=== PATIENT | female | born 1985 | race Caucasian/White ===

== ENCOUNTER 2016-09-09 13:17 | Emergency (ER) | payer OTHER ==
[2016-09-09 13:37] VITALS: BP 114/66
[2016-09-09] MEDS ORDERED: Ibuprofen TAB* 400 MG PO ONE (14:29)
--- NOTE | 2016-09-09 15:07 | RAD ---
INDICATION: Pelvic injury. TECHNIQUE: 2 AP views of the pelvis were obtained. FINDINGS: The bones are in normal alignment. No fracture is seen. Joint spaces appear maintained. IMPRESSION: NO EVIDENCE FOR FRACTURE, IF THE PATIENT'S SYMPTOMS PERSIST RECOMMEND FOLLOW-UP IMAGING.
--- NOTE | 2016-09-09 15:13 | RAD ---
INDICATION: Trauma, back pain. COMPARISON: Comparison is made with a prior x-ray study of the lumbar spine from August 09, [address] of the lumbar spine from February 20, 2010. TECHNIQUE: 5 views of the lumbar spine were obtained including lateral, oblique, AP and a coned-down lateral view of the lumbar sacral junction. FINDINGS: There is posterior displacement of the distal 3 coccygeal segments which is likely a chronic finding although an acute process cannot be excluded. Recommend clinical correlation. No fracture is seen. Disc spaces appear maintained. IMPRESSION: THERE IS MILD POSTERIOR SUBLUXATION OF THE DISTAL SEGMENTS OF THE COCCYGEAL SPINE. THIS IS A NONSPECIFIC ALTHOUGH LIKELY CHRONIC FINDING. RECOMMEND CLINICAL CORRELATION FOR POINT TENDERNESS.
--- NOTE | 2016-09-09 15:59 | UC ---
Nigel Saba Alok, scribed for Ernestina Land MD on 09/09/16 at 1410 . Minor Trauma HPI - HPI Summary HPI Summary: 31 y/o female presents to the and c/o pain in her right hip, tailbone, and lower back. Pt reportedly fell 2 days ago while carrying her 4 y/o down stairs. Pt's child was reportedly unharmed but pt noticed pain the following day. Pt has been taking ibuprofen for pain but nothing WIRE THREADER. Pt notes bruising on right buttocks and hip. Pt adds numbness where bruised and right anterior groin pain. Pt denies chance of and is on bcp. - History of Current Complaint Chief Complaint: UCTrauma Stated Complaint: HIP INJURY Hx Obtained From: Patient Hx Last Menstrual Period: 08/14/16 ?: No Onset/Duration: Gradual Onset, Lasting Days, Still Present Onset Of Pain: Post Accident Severity Initially: Moderate Severity Currently: Moderate Pain Intensity: 0 - worse with sitting Pain Scale Used: 0-10 Numeric Mechanism Of Injury: Fall From A Standing Position - Down a few stairs Aggravating Factor(s): Nothing Alleviating Factor(s): OTC Meds - Ibuprofen Associated Signs And Symptoms: Positive: Ecchymosis - Right buttocks and hip - Allergies/Home Medications Allergies/Adverse Reactions: Allergies Allergy/AdvReac Type Severity Reaction Status Date / Time No Known Allergies Allergy Verified 09/09/16 13:37 PMH/Surg Hx/FS Hx/Imm Hx Endocrine History Of: Denies: Diabetes, Thyroid Disease Cardiovascular History Of: Denies: Cardiac Disorders, Hypertension Respiratory History Of: Reports: Asthma - A CHILD Denies: COPD GI/ History Of: Denies: Ulcer - Surgical History Surgical History: None - Family History Known Family History: Positive: Cardiac Disease, Hypertension, Respiratory Disease - Social History Lives: With Family Alcohol Use: Occasionally Substance Use Type: None Smoking Status (MU): Light Every Day Tobacco Smoker Type: Cigarettes Amount Used/How Often: 1/2 PPD Length of Time of Smoking/Using Tobacco: 15 years Have You Smoked in the Last Year: Yes Review of Systems Constitutional: Negative Skin: Bruising - Right buttocks and hip Musculoskeletal: Arthralgia, Myalgia, Other: - Hip, tailbone, lower back, right anterior groin pain Neurological: Numbness - Right Buttocks and Hip All Other Systems Reviewed And Are Negative: Yes Physical Exam Triage Information Reviewed: Yes Appearance: Well-Appearing, Well-Nourished, Pain Distress Vital Signs: Initial Vital Signs Temp 98.6 F 09/09/16 13:33 Pulse 70 09/09/16 13:33 Resp 16 09/09/16 13:33 BP 114/66 09/09/16 13:33 Pulse Ox 100 09/09/16 13:33 Vital Signs Reviewed: Yes Eyes: Positive: Conjunctiva Clear ENT: Positive: Normal ENT inspection Neck: Positive: Supple, Nontender Respiratory: Positive: Lungs clear, Normal breath sounds, No respiratory distress Cardiovascular: Positive: RRR, No Murmur, Pulses Normal, Brisk Capillary Refill Abdomen Description: Positive: Nontender, Soft Bowel Sounds: Positive: Present Musculoskeletal: Positive: Strength Intact, ROM Intact, Other: - Right anterior groin tenderness. L4 L5 spinal tenderness and point tenderness at coccyx Neurological: Positive: Alert, Muscle Tone Normal, Other: - Gait normal; patellar reflexes 2+ symmetric; able to walk on heels and toes Psychological Exam: Normal Skin: Positive: Other - Right Buttocks lower ecchymosis 16 cm by 9 cm and upper eccymosis 8 cm by 9 cm. Ecchymosis dark purple in color. Re-Evaluation - Re-Evaluation First Eval Change: Improved - 15:30 after ibuprofen, still with severe pain with sitting Minor Trauma Course/Dx - Course Course Of Treatment: Pt has point tenderness at the site of coccygeal subluxation, so xray findings may be acute. Discussed with Dr. Valencia who recommends that if pt's pain persists, she could have advanced imaging. Discussed with pt. - Differential Dx/Diagnosis Differential Diagnosis/HQI/PQRI: Contusion(s), Fracture, Sprain, Strain Provider Diagnoses: Acute coccygeal injury. acute low back pain after a fall - Physician Notifications Time Discussed With Above Provider: 15:30 - Dr. Valencia, radiologist Instructed by Provider To: Other - Dr. Valencia feels the findings on xray are chronic because he did reconstructions on a prior CT and it appeared the coccyx findings were present. Discharge - Discharge Plan Condition: Stable Disposition: HOME Prescriptions: HYDROcodone/ACETAMIN 5-325 MG* [[place] 5-325 TAB*] 1 tab PO Q4H PRN #18 tab MDD 6 PRN Reason: Pain Ibuprofen TAB* [Motrin TAB* 800 MG] 800 mg PO Q6H #40 tab Patient Education Materials: Coccyx Injury (ED) Referrals: [facility] [Outside] (Call this number to get established with a primary care provider as soon as possible. ) Additional Instructions: If no improvement you can follow up with a provider and get further imaging. Return to urgent care if any new or worsening symptoms. The documentation as recorded by the Nigel dalton Alok accurately reflects the service I personally performed and the decisions made by , Ernestina Land MD.
== END 2016-09-09 15:55 | disposition home or self-care (01) ==
LOC: UCEAST 13:17
DX: S39.92XA Unspecified injury of lower back, initial encounter (principal); S30.0XXA Contusion of lower back and pelvis, initial encounter; S70.01XA Contusion of right hip, initial encounter; W10.9XXA Fall (on) (from) unspecified stairs and steps, initial encounter; Y93.89 Activity, other specified; Y92.9 Unspecified place or not applicable; M54.5 Low back pain; F17.210 Nicotine dependence, cigarettes, uncomplicated
CPT/HCPCS: 72110; 72170; 99212; A9270-GY; G0463

== ENCOUNTER 2016-10-09 13:16 | Emergency (ER) | payer OTHER ==
[2016-10-09 13:57] VITALS: BP 116/74
--- NOTE | 2016-10-09 14:36 | UC ---
Lidia Saba Salem, scribed for Nuris Jacobo MD on 10/09/16 at 1413 . Respiratory Complaint HPI - HPI Summary HPI Summary: Patient is a 31 y/o female who presents to the with chest tightness, worse in the morning, for a few days. She reports wheezing, a cough productive for green/yellow sputum. Pt denies fever, chills, or ear pain. She state that sinuses began to feel sore and full over last 2 days. Pt reports cough with yellow to green sputum. No SOB. No chest pain. no change appetite. No nausea, vomiting, dysuria. Pt does smoke 1/2 ppd. Pt with h/o bronchitis. States this feels similar Patients medication reviewed this visit. - History of Current Complaint Chief Complaint: UCRespiratory Stated Complaint: COUGH CONGESTION Time Seen by Provider: 10/09/16 13:51 Hx Obtained From: Patient Hx Last Menstrual Period: 1 WEEK AGO ?: No Onset/Duration: Gradual Onset, Still Present Timing: Constant Severity Initially: Mild Severity Currently: Moderate Pain Intensity: 3 Pain Scale Used: 0-10 Numeric Character: Sputum Description: - green/yellow Aggravating Factors: Nothing Alleviating Factors: Nothing Associated Signs And Symptoms: Positive: Negative, Wheezing, Nasal Congestion, Sinus Discomfort. Negative: Dyspnea, Fever, Chills - Allergies/Home Medications Allergies/Adverse Reactions: Allergies Allergy/AdvReac Type Severity Reaction Status Date / Time No Known Allergies Allergy Verified 09/24/16 15:44 PMH/Surg Hx/FS Hx/Imm Hx Previously Healthy: Yes Endocrine History Of: Denies: Diabetes, Thyroid Disease Cardiovascular History Of: Denies: Cardiac Disorders, Hypertension, Pacemaker/ICD Respiratory History Of: Reports: Asthma - A CHILD Denies: COPD GI/ History Of: Denies: Ulcer, Renal Disease Neurological History Of: Denies: TIA, Dementia - Surgical History Surgical History: None - Family History Known Family History: Positive: Cardiac Disease, Hypertension, Diabetes - Social History Alcohol Use: Occasionally Substance Use Type: None Smoking Status (MU): Light Every Day Tobacco Smoker Type: Cigarettes Amount Used/How Often: 1/2 PPD Length of Time of Smoking/Using Tobacco: 15 years Have You Smoked in the Last Year: Yes Review of Systems Constitutional: Fever, Fatigue Skin: Negative Eyes: Negative ENT: Negative, Nasal Discharge, Other - Pain in sinuses. Respiratory: Cough, Other - Wheezing. Chest tightness. Cardiovascular: Negative Gastrointestinal: Negative Genitourinary: Negative Motor: Negative Neurovascular: Negative Musculoskeletal: Negative Neurological: Negative Psychological: Negative All Other Systems Reviewed And Are Negative: Yes Physical Exam Triage Information Reviewed: Yes Appearance: Well-Appearing, No Pain Distress, Well-Nourished Vital Signs: Initial Vital Signs Temp 98.7 F 10/09/16 13:53 Pulse 52 10/09/16 13:53 Resp 16 10/09/16 13:53 BP 116/74 10/09/16 13:53 Pulse Ox 98 10/09/16 13:53 Vital Signs Reviewed: Yes Eye Exam: Normal Eyes: Positive: Conjunctiva Clear. Negative: Discharge ENT Exam: Normal ENT: Positive: Hearing grossly normal, Nasal congestion, TMs normal - TM x 2 clear turbinates inflammed and boggy + PND mild erythema, no exudate, uvula midline, Other: - + TTP max sinuses L>R. Negative: Pharyngeal erythema, Tonsillar swelling, Tonsillar exudate Dental Exam: Normal Neck exam: Normal Neck: Positive: Supple, Nontender, No Lymphadenopathy Respiratory Exam: Normal Respiratory: Positive: Chest non-tender. Negative: Stridor, Wheezing - few scattered wheeze R>L Pt with coarse cough noted No increased WOB, retractions Cardiovascular Exam: Normal Cardiovascular: Positive: RRR, No Murmur, Pulses Normal Abdominal Exam: Normal Abdomen Description: Positive: Nontender, No Organomegaly, Soft Bowel Sounds: Positive: Present Musculoskeletal Exam: Normal Musculoskeletal: Positive: Strength Intact, ROM Intact Neurological Exam: Normal Neurological: Positive: Alert, Muscle Tone Normal, Fatigued Psychological Exam: Normal Skin Exam: Normal UC Diagnostic Evaluation - Laboratory O2 Sat by Pulse Oximetry: 98 Respiratory Course/Dx - Course Course Of Treatment: Pt with progressive coarse cough, productive with fatigue and 2 days sinus pressure, PND. Pt with tobacco use - Differential Dx/Diagnosis Provider Diagnoses: bronchitis, sinusitis Discharge - Discharge Plan Condition: Stable Disposition: HOME Prescriptions: Albuterol HFA INHALER* [Ventolin HFA Inhaler*] 1 - 2 puff INH Q4H PRN #1 mdi PRN Reason: Cough Azithromycin TAB* [Zithromax TAB (Z-CEASAR) 250 mg #6 tabs] 2 tab PO .TODAY, THEN 1 DAILY #1 ceasar Patient Education Materials: Acute Bronchitis (ED), Sinusitis (ED) Referrals: Marvin Collazo MD [Primary Care Provider] - Additional Instructions: - Alternate ibuprofen (Advil, motrin) 600mg and tylenol every 3 hours for pain or fever. - Stay well hydrated. Drink plenty of non-alcoholic, non-caffinated beverages - take antibiotics 2 times a day as prescribed - USe inhaler - 2 puffs every 4 hours today, then eveyr 4 hours as needed -Work to decrease cigarette smoke -After you have been on antibiotics for 2 days - change your toothbrush and your pillowcase. These infections are spread by secrtions - do NOT share eating or drinking utensils - clean items you share with other people such as iphone, computer mouse, TV remote, etc Contact your doctor to schedule a follow-up appointment. Contact your doctor or return with questions or concerns The documentation as recorded by the Lidia dalton Salem accurately reflects the service I personally performed and the decisions made by , Nuris Jacobo MD.
== END 2016-10-09 15:15 | disposition home or self-care (01) ==
LOC: UCEAST 13:16
DX: J40 Bronchitis, not specified as acute or chronic (principal); J32.9 Chronic sinusitis, unspecified; F17.210 Nicotine dependence, cigarettes, uncomplicated
CPT/HCPCS: 99212; G0463

== ENCOUNTER 2017-06-26 12:23 | Emergency (ER) | payer OTHER ==
--- OUTSIDE RECORDS SUMMARY | 2017-06-26 12:56 | XMS REPORT ---
:1985 External Reference #:[id number] Author Organization [facility] Address [address] [place] [address] Phone [phone] Care Team Providers Name Role Phone [facility] Collazo M[facility] 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 Payers Type Date Identification Numbers Payment Provider Subscriber Commercial Policy Number: [id number] [facility] Hyun Fay PayID: [id number] [address] [place] [address] Medigap Part B Policy Number: [id number] Medicaid/[employer] Hyun Fay PayID: [id number] [address] [place] [address] Problems Description No Information Family History Date Family Member(s) Problem(s) Comments General Hypertension General Heart Disease General Diabetes Father Heart Disease Father 59 Mother Diabetes Mother 59 Mother Heart Disease Children 2 First Son 10 First Son No Current Problems Second Son 3 Second Son No Current Problems Siblings 1 First Sister Enlarged Liver First Sister 35 First Sister Hypertension Social History Type Date Description Comments Lives With Children Pets None Work Status Unemployed ETOH Use Occasionally consumes alcohol Smoking Light tobacco smoker (10 or fewer cigarettes/day) Recreational Drug Use Denies Drug Use Daily Caffeine Occasionally Allergies, Adverse Reactions, Alerts Date Description Reaction Status Severity Comments 09/23/2016 NKDA active Medications Medication Date Status Form Strength Qnty SIG Indications Ordering Provider Ciprofloxacin 06/08/ Hx Tablets 500mg 20tabs tab one by J45.901 Zay, HCL 2017 - mouth Marvin Coleman, 06/18/ twice a M.D. 2017 day Cheratussin ac 06/08/ Hx Syrup 100-10mg/5 150uni teaspoon 1 R05 Zay, 2017 - ML ts every 4 Ahmad M., 06/18/ hours as M.D. 2017 needed Prednisone 06/08/ Active Tablets 20mg 18tabs 3 tab by J45.901 Zay 2016 mouth Ahmad M., daily 3 M.D. days, then 2 tab daily x 3 d , then 1 tab daily 3d Tramadol HCL 04/13/ Active Tablets 50mg 45tabs 1 by mouth S32.2xxD Zay 2016 three Ahmad M., times a M.D. day Clonazepam 03/09/ Active Tablets 0.5mg 30tabs tab one by F41.9 Zay 2016 mouth at Ahmad M., at bedtime M.D. Fluocinonide 10/22/ Active Cream 0.05% 30gm use as L20.9 Zay 2017 directed Agustinmejae Coleman M.D. Hydrocodone-Acet 09/23/ Active Tablets 10-325mg 90tabs 1-2 tab by M51.37 Zay aminophen 2016 mouth Ahmad M., every 4 M.D. hours as needed Ibuprofen / Active Tablets 800mg Take One M51.37 Unknown 0000 Tablet By Mouth Every 6 Hours as Needed For Pain M25.551 S32.2xxD Amethia Active Tablets 0.15-0.03&0.01mg 91tabs take one Z30.41 Zay, tablet Ahmad by mouth M., every M.D. day Medrol 11/25/2016 Hx TBPK 4mg 21units use as M51.37 Zay, - directed Ahmad 12/01/2016 on M., package M.D. Prednison 09/23/2016 Hx Tablets 20mg 18tabs 3 tab by M54.17 Zay e - mouth Ahmad 10/01/2016 daily 3 M., days, M.D. then 2 tab daily x 3 d , then 1 tab daily 3d Hydrocodo Hx Tablets 5-325mg Take One M25.551 Unknown ne-Acetam - Tablet inophen 09/23/2016 By Mouth Every 4 Hours as Needed For Pain Maximum Nataly M51.37 Z00.01 Vital Signs Date Vital Result Comment 06/08/2017 BP Systolic 122 mmHg BP Diastolic 62 mmHg Height 66 inches 5'6" Weight 173.00 lb BMI (Body Mass Index) 27.9 kg/m2 Heart Rate 54 /min Respiratory Rate 18 /min 05/11/2017 BP Systolic 110 mmHg BP Diastolic 62 mmHg Height 66 inches 5'6" Weight 181.00 lb BMI (Body Mass Index) 29.2 kg/m2 Heart Rate 62 /min Respiratory Rate 18 /min 04/13/2017 BP Systolic 108 mmHg BP Diastolic 68 mmHg Height 66 inches 5'6" Weight 184.00 lb BMI (Body Mass Index) 29.7 kg/m2 Heart Rate 66 /min Respiratory Rate 16 /min 03/09/2017 BP Systolic 110 mmHg BP Diastolic 70 mmHg Height 66 inches 5'6" Weight 184.00 lb BMI (Body Mass Index) 29.7 kg/m2 Heart Rate 68 /min Respiratory Rate 16 /min 02/14/2017 BP Systolic 110 mmHg BP Diastolic 70 mmHg Height 66 inches 5'6" Weight 188.00 lb BMI (Body Mass Index) 30.3 kg/m2 Heart Rate 88 /min Respiratory Rate 18 /min 01/20/2017 BP Systolic 118 mmHg BP Diastolic 66 mmHg Height 66 inches 5'6" Weight 191.00 lb BMI (Body Mass Index) 30.8 kg/m2 Heart Rate 78 /min Respiratory Rate 16 /min 12/22/2016 BP Systolic 122 mmHg BP Diastolic 62 mmHg Height 66 inches 5'6" Weight 202.00 lb BMI (Body Mass Index) 32.6 kg/m2 Heart Rate 76 /min Respiratory Rate 16 /min 11/25/2016 BP Systolic 134 mmHg BP Diastolic 78 mmHg Height 66 inches 5'6" Weight 206.00 lb BMI (Body Mass Index) 33.2 kg/m2 Heart Rate 78 /min Respiratory Rate 16 /min 10/22/2016 BP Systolic 108 mmHg BP Diastolic 64 mmHg Height 66 inches 5'6" Weight 206.00 lb BMI (Body Mass Index) 33.2 kg/m2 Heart Rate 81 /min Respiratory Rate 16 /min 09/23/2016 BP Systolic 110 mmHg BP Diastolic 68 mmHg Height 66 inches 5'6" Weight 206.00 lb BMI (Body Mass Index) 33.2 kg/m2 Heart Rate 63 /min Respiratory Rate 18 /min Results Test Date Test Result H/L Range Note CBC Auto Diff 12/22/2016 White Blood Count 11.4 10^3/uL High 3.5-10.8 Red Blood Count 4.36 10^6/uL 4.0-5.4 Hemoglobin 13.1 g/dL 12.0-16.0 Hematocrit 41 % 35-47 Mean Corpuscular Volume 94 fL 80-97 Mean Corpuscular Hemoglobin 30 pg 27-31 Mean Corpuscular HGB Conc 32 g/dL 31-36 Red Cell Distribution Width 13 % 10.5-15 Platelet Count 313 10^3/uL 150-450 Mean Platelet Volume 10 um3 7.4-10.4 Abs Neutrophils 7.0 10^3/uL 1.5-7.7 Abs Lymphocytes 3.3 10^3/uL 1.0-4.8 Abs Monocytes 0.6 10^3/uL 0-0.8 Abs Eosinophils 0.2 10^3/uL 0-0.6 Abs Basophils 0.2 10^3/uL 0-0.2 Abs Nucleated RBC 0.01 10^3/uL Granulocyte % 61.3 % 38-83 Lymphocyte % 29.4 % 25-47 Monocyte % 5.3 % 1-9 Eosinophil % 2.1 % 0-6 Basophil % 1.9 % 0-2 Nucleated Red Blood Cells % 0.1 Comp Metabolic Panel 12/22/2016 Sodium 137 mmol/L 133-145 Potassium 4.2 mmol/L 3.5-5.0 Chloride 109 mmol/L 101-111 Co2 Carbon Dioxide 22 mmol/L 22-32 Anion Gap 6 mmol/L 2-11 Glucose 90 mg/dL 70-100 Blood Urea Nitrogen 12 mg/dL 6-24 Creatinine 0.70 mg/dL 0.51-0.95 BUN/Creatinine Ratio 17.1 8-20 Calcium 9.0 mg/dL 8.6-10.3 Total Protein 6.2 g/dL Low 6.4-8.9 Albumin 3.8 g/dL 3.2-5.2 Globulin 2.4 g/dL 2-4 Albumin/Globulin Ratio 1.6 1-3 Total Bilirubin 0.60 mg/dL 0.2-1.0 Alkaline Phosphatase 39 U/L 34-104 Alt 11 U/L 7-52 Ast 11 U/L Low 13-39 Egfr Non- 98.3 >60 Egfr 126.4 >60 1 Laboratory test finding 12/22/2016 TSH (Thyroid Stim Horm) 1.46 mcIU/mL 0.34-5.60 2 Hemoglobin A1c (Glyco HGB) 5.1 % Less than 6.0 3 Lipid Profile (Trig/Chol/HDL) 12/22/2016 Triglycerides 98 mg/dL 4 Cholesterol 126 mg/dL 5 HDL Cholesterol 40.5 mg/dL 6 LDL Cholesterol 66 mg/dL 7 1 Because ethnic data is not always readily available, this report includes an eGFR for both -Americans and non- Americans. The National Kidney Disease Education Program (NKDEP) does not endorse the use of the MDRD equation for patients that are not between the ages of 18 and 70, are , have extremes of body size, muscle mass, or nutritional status, or are non- or non-. According to the National Kidney Foundation, irrespective of diagnosis, the stage of the disease is based on the level of kidney function: Stage Description GFR(mL/min/1.73 m(2)) 1 Kidney damage with normal or decreased GFR 90 2 Kidney damage with mild decrease in GFR 60-89 3 Moderate decrease in GFR 30-59 4 Severe decrease in GFR 15-29 5 Kidney failure <15 (or dialysis) 2 [id number] 3 Therapeutic target for the treatment of diabetes Mellitus patients is <7% HBA1C, and in selective patients <6.0%.Please refer to [place] [employer] Association Diabetic care guidelines for further information. 4 Desirable <150 Borderline high 150-199 High 200-499 Very High >500 5 Desirable <200 Borderline high 200-239 High >239 6 Low <40 Desirable: 40-60 High: >60 7 Desirable: <100 mg/dL Near Optimal: 100-129 mg/dL Borderline High: 130-159 mg/dL High: 160-189 mg/dL Very High: >189 mg/dL Procedures Date CPT Code Description Status 06/08/2017 35742 Spirometry Completed 09/23/2016 36966 Visual Screening Test Completed 09/23/2016 44734 Audiometry, Bekesy, Screening Completed Encounters Type Date Location Provider CPT E/M Dx Office Visit 06/08/2017 2:45p [place] [facility] Timothy Musa [facility] [address]6260 S32.2xxD F41.9 R05 J45.901 M51.37 Office Visit 05/11/2017 2:15p [place] [facility] Timothy MusaP 25523 M51.37 S32.2xxD Office Visit 04/13/2017 2:45p [place] [facility] Timothy Musa [facility] 82676 M51.37 S32.2xxD N64.4 Office Visit 03/09/2017 2:30p [place] [facility] Timothy MusaP 51620 M51.37 S32.2xxD F41.9 Office Visit 02/14/2017 3:15p [place] [facility] Timothy Musa 39910 M51.37 S32.2xxD Z79.891 Office Visit 01/20/2017 2:45p [place] [facility] Timothy Musa [facility] 06254 M51.37 S32.2xxD Z79.891 E66.01 Office Visit 12/22/2016 9:45a [place] [facility] Timothy Musa [facility] [address]7834 M51.37 S32.2xxD Z79.891 Office Visit 11/25/2016 9:30a [facility] Marvin Collazo M.D. 82465 M51.37 S32.2xxD Z30.41 E66.01 M25.551 M54.17 J45.909 F41.9 G47.00 F34.1 L20.9 J30.9 Office Visit 10/22/2016 9:45a [facility] Marvin Collazo M.D. 03879 M51.37 S32.2xxD Z30.41 E66.01 M25.551 M54.17 J45.909 F41.9 G47.00 F34.1 L20.9 J30.9 Office Visit 09/23/2016 9:30a [facility] [facility] Marvin Collazo M.D. 49232 Z00.01 M51.37 S32.2xxD L20.9 J30.9 Z30.41 E66.01 M25.551 M54.17 J45.909 F41.9 G47.00 F34.1 Plan of Care 06/08/2017 - Timothy Musa FNPS32.2xxD Fracture of coccyx, subs for fx w [place] healComments:MEDS , ICEF41.9 Anxiety disorder, unspecifiedComments:CONTINUE PRESCRIBED MEDICATIONS RELAXATION TECHNIQUES DISCUSSED COUNSELED RE: STRESSORS IN LIFER05 CoughNew Medication:Cheratussin ac 100-10 mg/5MLComments:INCREASE CLEAR LIQUIDSSTEAMGARGLE WARM SALT H2O TIDJ45.901 Unspecified asthma with (acute ) exacerbationNew Medication:Ciprofloxacin HCL 500 mgPrednisone 20 mgComments: finish abx and hnyazlsbbcY97.37 Other intervertebral disc degeneration, lumbosacral regionComments:EXERCISE/HEAT /MESSAGEAVOID HEAVY LIFTING TYLENOL OR MOTRIN PRNDUR CHECKED
[2017-06-26 13:02] VITALS: BP 108/63
--- NOTE | 2017-06-26 13:06 | UC ---
Respiratory Complaint HPI - HPI Summary HPI Summary: 32 year old female presents with complains cough, nasal congestion. and post nasal drip. - History of Current Complaint Chief Complaint: UCGeneralIllness Stated Complaint: COUGH Time Seen by Provider: 06/26/17 13:04 Hx Obtained From: Patient Hx Last Menstrual Period: 05/05/17, implant Onset/Duration: Sudden Onset Severity Initially: Moderate Severity Currently: Moderate Pain Scale Used: 0-10 Numeric - 5 Aggravating Factors: Deep Breaths Alleviating Factors: Bronchodilator - Allergies/Home Medications Allergies/Adverse Reactions: Allergies Allergy/AdvReac Type Severity Reaction Status Date / Time No Known Allergies Allergy Verified 06/26/17 12:55 Home Medications: Home Medications Etonogestrel [Nexplanon] 68 mg IMPLANT DAILY 06/26/17 [History Confirmed ] PMH/Surg Hx/FS Hx/Imm Hx Previously Healthy: Yes - Surgical History Surgical History: None - Family History Known Family History: Positive: None, Cardiac Disease, Hypertension, Diabetes, Respiratory Disease - Social History Alcohol Use: Occasionally Substance Use Type: None Smoking Status (MU): Former Smoker Type: Cigarettes Amount Used/How Often: 1/2 PPD Length of Time of Smoking/Using Tobacco: 15 years Have You Smoked in the Last Year: Yes - Immunization History Most Recent Influenza Vaccination: 2017 Review of Systems Constitutional: Negative Skin: Negative Eyes: Negative ENT: Sore Throat, Ear Ache, Nasal Discharge, Sinus Congestion, Sinus Pain/ Tenderness Respiratory: Cough Cardiovascular: Negative Gastrointestinal: Negative Genitourinary: Negative Motor: Negative Neurovascular: Negative Musculoskeletal: Negative Neurological: Negative Psychological: Negative All Other Systems Reviewed And Are Negative: Yes Physical Exam Triage Information Reviewed: Yes Vital Signs: Initial Vital Signs Temp 37.1 C 06/26/17 12:57 Pulse 81 06/26/17 12:57 Resp 16 06/26/17 12:57 BP 108/63 06/26/17 12:57 Pulse Ox 100 06/26/17 12:57 Vital Signs Reviewed: Yes Eye Exam: Normal ENT: Positive: Nasal congestion, Nasal drainage, Sinus tenderness Dental Exam: Normal Neck exam: Normal Neck: Positive: 1 Respiratory Exam: Normal Cardiovascular Exam: Normal Abdominal Exam: Normal Musculoskeletal Exam: Normal Neurological Exam: Normal Psychological Exam: Normal Skin Exam: Normal UC Diagnostic Evaluation - Laboratory O2 Sat by Pulse Oximetry: 100 Respiratory Course/Dx - Differential Dx/Diagnosis Provider Diagnoses: post nasal drip. cough Discharge - Discharge Plan Condition: Stable Disposition: HOME Prescriptions: Albuterol HFA INHALER* [Ventolin HFA Inhaler*] 2 puff INH Q4H PRN #1 mdi PRN Reason: Wheezing Amoxicillin/Clavulanate TAB* [Augmentin TAB 875*] 875 mg PO BID #20 tab Guaifenesin-Codeine [Cheratussin AC] 1 teasp PO BEDTIME PRN #120 ml MDD 5 ml PRN Reason: Cough LoraTADine TAB(NF) [Claritin 10 MG TAB(NF)] 10 mg PO DAILY #30 tab Patient Education Materials: Acute Cough (ED) Referrals: Timothy Guerrero [Primary Care Provider] -
== END 2017-06-26 13:27 | disposition home or self-care (01) ==
LOC: UCEAST 12:23
DX: R05 Cough (principal); R09.82 Postnasal drip; Z87.891 Personal history of nicotine dependence
CPT/HCPCS: 99212; G0463

== ENCOUNTER 2018-10-09 18:45 | Emergency (ER) | payer OTHER ==
[2018-10-09 19:31] VITALS: BP 114/75
--- NOTE | 2018-10-09 19:36 | UC ---
Hand/Wrist HPI - HPI Summary HPI Summary: 33 yo female presents with LEFT thumb injury sustained a few hours [employer]. She tells me that she was putting her 5 yo son in the car when the child moved suddenly and pt's thumb was bent backwards towards her wrist. Had immediate pain. She continued to go about her evening and made dinner for her family before presenting to [facility]. She has applied some ice intermittently with good relief. She states that she does not think anything is "broken", but was worried that she "tore a tendon". She is RIGHT handed. - History Of Current Complaint Chief Complaint: UCUpperExtremity Stated Complaint: THUMB COMPLAINT Time Seen by Provider: 10/09/18 19:35 Hx Obtained From: Patient Hx Last Menstrual Period: NEXPLANON Onset/Duration: Sudden Onset Severity Initially: Severe Severity Currently: Moderate Pain Intensity: 7 Pain Scale Used: 0-10 Numeric - Allergies/Home Medications Allergies/Adverse Reactions: Allergies Allergy/AdvReac Type Severity Reaction Status Date / Time No Known Allergies Allergy Verified 10/09/18 19:31 Home Medications: Home Medications Escitalopram * [Lexapro *] 5 mg PO DAILY 10/09/18 [History Confirmed 10/09/18] clonazePAM TAB(*) [KlonoPIN TAB(*)] 0.5 tab PO BEDTIME 10/09/18 [History Confirmed 10/09/18] oxyCODONE TAB* [Roxycodone TAB 5 mg*] 10 mg PO TID PRN 10/09/18 [History Confirmed 10/09/18] PMH/Surg Hx/FS Hx/Imm Hx - Additional Past Medical History Additional PMH: Chronic pain Respiratory History: Asthma Psychological History: Anxiety, Depression - Surgical History Surgical History: None - Family History Known Family History: Positive: Cardiac Disease, Hypertension, Diabetes, Respiratory Disease - Social History Lives: With Family Alcohol Use: Occasionally Substance Use Type: Marijuana Smoking Status (MU): Former Smoker Type: Cigarettes Amount Used/How Often: 1/2 PPD Length of Time of Smoking/Using Tobacco: 15 years Have You Smoked in the Last Year: Yes - Immunization History Most Recent Influenza Vaccination: 2017 Review of Systems All Other Systems Reviewed And Are Negative: Yes Constitutional: Positive: Negative Skin: Positive: Negative Respiratory: Positive: Negative Cardiovascular: Positive: Negative Neurovascular: Positive: Negative Musculoskeletal: Positive: Other: - LEft thumb pain Neurological: Positive: Negative Psychological: Positive: Negative Physical Exam - Summary Physical Exam Summary: GENERAL: NAD. WDWN. No pain distress. SKIN: No rashes, sores, lesions, or open wounds. CHEST: No accessory muscle use. Breathing comfortably and in no distress. CV: Pulses intact radial and ulnar. Cap refill <2seconds MSK: LEFT THUMB: Mild TTP at 1st MCP. Pain at extensor surface with flexion of thumb. FROM. Strength 5/5 including peanut sorter strength. No edema or obvious bony deformities. No snuffbox tenderness. NEURO: Alert. Sensations intact hand and all fingers. PSYCH: Age appropriate behavior. Triage Information Reviewed: Yes Vital Signs: Initial Vital Signs Temp 98.8 F 10/09/18 19:29 Pulse 68 10/09/18 19:29 Resp 16 10/09/18 19:29 BP 114/75 10/09/18 19:29 Pulse Ox 100 10/09/18 19:29 Vital Signs Reviewed: Yes Hand/Wrist Course/Dx - Course Course Of Treatment: Suspect thumb sprain. Discussed obtaining an XR today with the pt, but she prefers to treat conservatively for now and if symptoms do not improve to f/u and will likely include an XR at that time. She was provided with a thumb spica splint to use. Continue to RICE and take tylenol/ibuprofen for discomfort. If symptoms do not improve to be rechecked. - Differential Dx/Diagnosis Provider Diagnosis: Left thumb sprain Discharge - Sign-Out/Discharge Documenting (check all that apply): Patient Departure All imaging exams completed and their final reports reviewed: No Studies - Discharge Plan Condition: Stable Disposition: HOME Patient Education Materials: Skier's Thumb (ED) Referrals: Chasidy Singh MD [Primary Care Provider] - Additional Instructions: If you develop a fever, shortness of breath, chest pain, new or worsening symptoms - please call your PCP or go to the ED. I suspect you have strain/sprain your thumb. Please use the thumb brace as much as possible for the next 5-7 days until feeling better. If your pain worsens or if your symptoms do not improve - please be rechecked - Billing Disposition and Condition Condition: STABLE Disposition: Home - Attestation Statements Provider Attestation: I was available for consult. This patient was seen by the GRAYSON. The patient was not presented to, seen by, or examined by me. -Antonieta
== END 2018-10-09 19:49 | disposition home or self-care (01) ==
LOC: UCEAST 18:45
DX: S63.602A Unspecified sprain of left thumb, initial encounter (principal); X50.1XXA Overexertion from prolonged static or awkward postures, initial encounter; Y92.810 Car as the place of occurrence of the external cause; G89.29 Other chronic pain; J45.909 Unspecified asthma, uncomplicated; F41.9 Anxiety disorder, unspecified; F32.9 Major depressive disorder, single episode, unspecified; Z87.891 Personal history of nicotine dependence
CPT/HCPCS: 99213; G0463

== ENCOUNTER 2019-06-15 09:04 | Emergency (ER) | payer OTHER ==
--- OUTSIDE RECORDS SUMMARY | 2019-06-15 09:09 | XMS REPORT | Continuity of Care Document ---
:1985 External Reference #:[id number] Author Name Grady Tolliver DO MPH Address [address] [place] [address], [address] [place] [address] Care Team Providers Name Role Phone Marvin Collazo M.D. - Family Medicine Care Team Information Preventive Maintenance Engineer Chasidy Singh M.D. - Family Medicine Care Team Information Preventive Maintenance Engineer [phone] Problems Description No Information Available Social History Type Date Description Comments Sex Unknown ETOH Use Occasionally consumes alcohol Recreational Drug Use Denies Drug Use Tobacco Use Start: Unknown End: Patient is a former smoker Unknown Smoking Status Reviewed: 05/09/19 Patient is a former smoker Allergies, Adverse Reactions, Alerts Description No Known Drug Allergies Medications Active Medications SIG Qnty Indications Ordering Date Provider Vipin si by mouth 30tabs Grady Tolliver, 01/08/2019 15mg Tablets every day as DO, MPH directed chronic pain patient Tizanidine HCL si/2-1 by 60tabs Grady Tolliver, 12/08/2018 4mg mouth every 12 DO, MPH Tablets hours as directed Oxycodone HCL si by mouth 90tabs Grady Tolliver, 05/10/2018 10mg every 8 hours as DO, MPH Tablets directed chronic pain patient Clonazepam 1/2 to 1 at night Unknown 0.5mg Tablets Nexplanon Unknown 68mg Implant Lexapro si by mouth Unknown 20mg Tablets every day as directed Bupropion 3 by mouth in the Unknown Hydrochloride ER (SR) morning 100mg Tablets ER 12HR History Medications Meloxicam si by mouth 30tabs Grady Tolliver DO, 11/13/2018 - 7.5mg every morning as MPH 12/08/2018 Tablets directed chronic pain. take with food. Celecoxib sig :1 by mouth 30caps Grady Tolliver DO, 11/08/2018 - 200mg every day MPH 01/08/2019 Capsules Immunizations Description No Information Available Vital Signs Date Vital Result Comment 05/09/2019 3:00pm BP Systolic 128 mmHg BP Diastolic 86 mmHg Heart Rate 84 /min Respiratory Rate 20 /min Height 66 inches 5'6" Weight 193.00 lb Pain Level 7 Pain at this time. Pain Level With Medicine 6 on average with meds Pain Level Without Medicine 9 without meds BMI (Body Mass Index) 31.1 kg/m2 04/09/2019 3:52pm BP Systolic 128 mmHg BP Diastolic 84 mmHg Heart Rate 86 /min Respiratory Rate 20 /min Height 66 inches 5'6" Weight 190.00 lb Pain Level 7 Pain at this time. Pain Level With Medicine 7 on average with meds Pain Level Without Medicine 9 without meds Pain Level After Procedure 4 BP Systolic Recheck 118 mmHg Pulse:78 BP Diastolic Recheck 72 mmHg Pulse:78 BMI (Body Mass Index) 30.7 kg/m2 Results Description No Information Available Procedures Date Code Description Status 04/09/2019 42861 Therapeutic, Prophylactic Or Diagnostic Injection Subq/Im Completed 04/09/2019 51643 Injection For Nerve Block, Other Peripheral Nerve Or Completed Branch 04/09/201962861 Injection, Single Or Mutiple Trigger Points One Or Two Completed Muscles 04/09/201976008 Injection, Tendon Origin/Insertion Completed 04/09/201969167 Injection, Tendon Origin/Insertion Completed 04/09/201925190 Inject Tendon/Ligament Completed 04/09/201927712 Inject Tendon/Ligament Completed 04/09/2019 15007 Inject Tendon/Ligament Completed 04/09/201948190 Inject Tendon/Ligament Completed 03/09/2019 31848 Omt 3-4 Body Regions Completed 03/09/2019 85103 Therapeutic, Prophylactic Or Diagnostic Injection Subq/Im Completed 02/07/2019 85882 Therapeutic, Prophylactic Or Diagnostic Injection Subq/Im Completed 01/24/201923755 Inject Tendon/Ligament Completed 01/24/2019 14282 Inject Tendon/Ligament Completed 01/24/201918199 Inject Tendon/Ligament Completed 01/24/2019 02737 Inject Tendon/Ligament Completed 01/24/2019 Injection, Tendon Origin/Insertion Completed 01/24/2019 Injection, Tendon Origin/Insertion Completed 01/24/2019 Injection, Single Or Mutiple Trigger Points One Or Two Completed Muscles 01/24/2019 56945 Injection For Nerve Block, Other Peripheral Nerve Or Completed Branch 01/08/2019 86603 Omt 1-2 Body Regions Completed 01/08/2019 85589 Therapeutic, Prophylactic Or Diagnostic Injection Subq/Im Completed 11/08/2018 11768 Omt 3-4 Body Regions Completed 11/08/2018 26472 Therapeutic, Prophylactic Or Diagnostic Injection Subq/Im Completed Medical Devices Description No Information Available Encounters Type Date Location Provider Dx Diagnosis Office Visit 04/09/2019 Main Office as Of Grady Tolliver DO G89.29 Other chronic pain 3:45p 07/28/13 MPH M15.0 Primary generalized (osteo)arthritis M54.2 Cervicalgia M54.6 Pain in thoracic spine M54.5 Low back pain M54.16 Radiculopathy, lumbar region M65.88 Other synovitis and tenosynovitis, other site M79.18 Myalgia, other site Z79.891 skilled nursing (current) use of opiate analgesic R53.83 Other fatigue Office Visit 03/09/2019 2:30p Main Office as Grady Tolliver G89.29 Other chronic Of 07/28/13 DO, [facility] pain M15.0 Primary generalized (osteo)arthritis M54.2 Cervicalgia M99.01 Segmental and somatic dysfunction of cervical region M54.6 Pain in thoracic spine M99.02 Segmental and somatic dysfunction of thoracic region M54.5 Low back pain M99.03 Segmental and somatic dysfunction of lumbar region M54.16 Radiculopathy, lumbar region Z79.891 skilled nursing (current) use of opiate analgesic R53.83 Other fatigue Office Visit 02/07/2019 2:30p Main Office as Grady Tolliver G89.29 Other chronic Of 07/28/13 DO, MPH pain M15.0 Primary generalized (osteo)arthritis M54.16 Radiculopathy, lumbar region M79.18 Myalgia, other site 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 R53.83 Other fatigue Office Visit 01/24/2019 3:00p Main Office as rGady Tolliver G89.29 Other chronic Of 07/28/13 DO, MPH pain M15.0 Primary generalized (osteo)arthritis M54.5 Low back pain M54.16 Radiculopathy, lumbar region M65.88 Other synovitis and tenosynovitis, other site M79.18 Myalgia, other site 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 Office Visit 01/08/2019 2:15p Main Office as Grady Tolliver, G89.29 Other chronic Of 07/28/13 DO, MPH pain M15.0 Primary generalized (osteo)arthritis M54.2 Cervicalgia M99.01 Segmental and somatic dysfunction of cervical region M54.5 Low back pain M54.6 Pain in thoracic spine 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 R53.83 Other fatigue Office Visit 12/08/2018 2:15p Main Office as Grady Tolliver G89.29 Other chronic Of 07/28/13 DO, MPH pain M15.0 Primary generalized (osteo)arthritis M54.2 Cervicalgia M54.6 Pain in thoracic spine M54.5 Low back pain Z79.891 skilled nursing (current) use of opiate analgesic M99.03 Segmental and somatic dysfunction of lumbar region Office Visit 11/08/2018 2:30p Main Office as Grady Tolliver, G89.29 Other chronic Of 07/28/13 DO, MPH pain M15.0 Primary generalized (osteo)arthritis M54.2 Cervicalgia M99.01 Segmental and somatic dysfunction of cervical region M54.6 Pain in thoracic spine M99.02 Segmental and somatic dysfunction of thoracic region M54.5 Low back pain M99.03 Segmental and somatic dysfunction of lumbar region R53.83 Other fatigue 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 Assessments Date Code Description Provider 05/09/2019 G89.29 Other chronic pain Grady Tolliver DO, MPH 05/09/2019 M15.0 Primary generalized (osteo)arthritis Grady Tolliver DO, MPH 05/09/2019 M54.5 Low back pain Grady Tolliver DO, MPH 05/09/2019 M54.16 Radiculopathy, lumbar region Tolliver, Grady, DO, MPH 05/09/2019 M54.2 Cervicalgia Tolliver, Grady, DO, MPH 05/09/2019 M54.6 Pain in thoracic spine Tolliver, Grady, DO, MPH 05/09/2019 Z79.891 skilled nursing (current) use of opiate analgesic Tolliver, Grady , DO, MPH 05/09/2019 R53.83 Other fatigue Tolliver, Grady, DO, MPH 05/09/2019 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 Tolliver, Grady, DO , MPH nervous system 04/09/2019 G89.29 Other chronic pain Tolliver, Grady, DO, MPH 04/09/2019 M15.0 Primary generalized (osteo)arthritis Tolliver, Grady, DO, MPH 04/09/2019 M54.2 Cervicalgia Tolliver, Grady, DO, MPH 04/09/2019 M54.6 Pain in thoracic spine Tolliver, Grady, DO, MPH 04/09/2019 M54.5 Low back pain Tolliver, Grady, DO, MPH 04/09/2019 M54.16 Radiculopathy, lumbar region Otlliver, Grady, DO, MPH 04/09/2019 M65.88 Other synovitis and tenosynovitis, other Tolliver, Grady, DO , MPH site 04/09/2019 M79.18 Myalgia, other site Tolliver, Grady, DO, MPH 04/09/2019 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 Tolliver, Grady , DO, MPH 04/09/2019 R53.83 Other fatigue Tolliver, Grady, DO, MPH 03/09/2019 G89.29 Other chronic pain Tolliver, Grady, DO, MPH 03/09/2019 M15.0 Primary generalized (osteo)arthritis Tolliver, Grady, DO, MPH 03/09/2019 M54.2 Cervicalgia Tollivre, Grady, DO, MPH 03/09/2019 M99.01 Segmental and somatic dysfunction of Tolliver, Grady, DO, MPH cervical region 03/09/2019 M54.6 Pain in thoracic spine Tolliver, Grady, DO, MPH 03/09/2019 M99.02 Segmental and somatic dysfunction of Tolliver, Grady, DO, MPH thoracic region 03/09/2019 M54.5 Low back pain Tolliver, Grady, DO, MPH 03/09/2019 M99.03 Segmental and somatic dysfunction of lumbar Tolliver, Grady, DO, MPH region 03/09/2019 M54.16 Radiculopathy, lumbar region Tolliver, Grady, DO, MPH 03/09/2019 Z79.891 skilled nursing (current) use of opiate analgesic Tolliver, Grady , DO, MPH 03/09/2019 R53.83 Other fatigue Tolliver, Grady, DO, MPH 02/07/2019 G89.29 Other chronic pain Tolliver, Grady, DO, MPH 02/07/2019 M15.0 Primary generalized (osteo)arthritis Tolliver, Grady, DO, MPH 02/07/2019 M54.16 Radiculopathy, lumbar region Tolliver, Grady, DO, MPH 02/07/2019 M79.18 Myalgia, other site Tolliver, Grady, DO, MPH 02/07/2019 Z79.891 skilled nursing (current) use of opiate analgesic Tolliver, Grady , DO, MPH 02/07/2019 R53.83 Other fatigue Tolliver, Grady, DO, MPH 01/24/2019 G89.29 Other chronic pain Tolliver, Grady, DO, MPH 01/24/2019 M15.0 Primary generalized (osteo)arthritis Tolliver, Grady, DO, MPH 01/24/2019 M54.5 Low back pain Tolliver, Grady, DO, MPH 01/24/2019 M54.16 Radiculopathy, lumbar region Tolliver, Grady, DO, MPH 01/24/2019 M65.88 Other synovitis and tenosynovitis, other Tolliver, Grady, DO , MPH site 01/24/2019 M79.18 Myalgia, other site Tolliver, Grady, DO, MPH 01/24/2019 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 Tolliver, Grady , DO, MPH 01/08/2019 G89.29 Other chronic pain Tolliver, Grady, DO, MPH 01/08/2019 M15.0 Primary generalized (osteo)arthritis Tolliver, Grady, DO, MPH 01/08/2019 M54.2 Cervicalgia Tolliver, Grady, DO, MPH 01/08/2019 M99.01 Segmental and somatic dysfunction of Tolliver, Grady, DO, MPH cervical region 01/08/2019 M54.5 Low back pain Tolliver, Grady, DO, MPH 01/08/2019 M54.6 Pain in thoracic spine Tolliver, Grady, DO, MPH 01/08/2019 Z79.891 skilled nursing (current) use of opiate analgesic Tolliver, Grady , DO, MPH 01/08/2019 R53.83 Other fatigue Tolliver, Grady, DO, MPH 12/08/2018 G89.29 Other chronic pain Tolliver, Grady, DO, MPH 12/08/2018 M15.0 Primary generalized (osteo)arthritis Tolliver, Grady, DO, MPH 12/08/2018 M54.2 Cervicalgia Tolliver, Grady, DO, MPH 12/08/2018 M54.6 Pain in thoracic spine Tolliver, Grady, DO, MPH 12/08/2018 M54.5 Low back pain Tolliver, Grady, DO, MPH 12/08/2018 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 Tolliver, Grady , DO, MPH 12/08/2018 M99.03 Segmental and somatic dysfunction of lumbar Tolliver, Grady, DO, MPH region 11/08/2018 G89.29 Other chronic pain Tolliver, Grady, DO, MPH 11/08/2018 M15.0 Primary generalized (osteo)arthritis Tolliver, Grady, DO, MPH 11/08/2018 M54.2 Cervicalgia Tolliver, Grady, DO, MPH 11/08/2018 M99.01 Segmental and somatic dysfunction of Tolliver, Grady, DO, MPH cervical region 11/08/2018 M54.6 Pain in thoracic spine Tolliver, Grady, DO, MPH 11/08/2018 M99.02 Segmental and somatic dysfunction of Tolliver, Grady, DO, MPH thoracic region 11/08/2018 M54.5 Low back pain Grady Tolliver DO MPH 11/08/2018 M99.03 Segmental and somatic dysfunction of lumbar Grady Tolliver DO MPH region 11/08/2018 R53.83 Other fatigue Grady Tolliver DO MPH 11/08/2018 Z79.891 skilled nursing (current) use of opiate analgesic Grady Tolliver DO MPH Plan of Treatment Future Appointment(s):06/07/2019 2:15 pm - Grady Tolliver DO MPH at Main Office as Of 07/28/1410 - Grady Tolliver DO MPHG89.29 Other chronic painComments:Chronic. Symptoms and complaints discussed and reviewed today. No significant changes in physical findings. Continue current medical pain management.M15.0 Primary generalized (osteo)arthritisComments:Chronic. Symptoms and complaints discussed and reviewed today. No significant changes in physical findings. Continue current medical pain management.M54.5 Low back painComments: Chronic. Symptoms and complaints discussed and reviewed today.No changes in physical findings. Patient is stable and comfortable when current medical therapy is rendered.M54.16 Radiculopathy, lumbar regionComments:Chronic. Symptoms and complaints discussed and reviewed today. No changes in physical findings; patient is stable on current medical therapy.M54.2 CervicalgiaComments :Chronic. Symptoms and complaints discussed and reviewed today. No significant changes in physical findings. Continue current medical pain management.M54.6 Pain in thoracic spineComments:Chronic.Symptoms and complaints discussed and reviewed today. No significant changes in physical findings. Continue current medical pain management.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New Labs:Urine Drug Screen, Ordered: 05/09/19Comments:Urine drug screen sample taken. Rapid Point of Care Cup was reviewed in office with patient. Will send out UDT Rapid to [facility] lab for confirmation testing. Urine Drug Testing (UDT) was done today to monitor opiate use and to monitor possible use of illicit substances. I will discuss the results at the next appointment from the [facility] lab.The following tests were ordered:6 AM, AMPH, ESTEPHANIE, TAMEKA, BUP, CARIS, COCM, ETG, FENT, MCSHSG, OPI, OXY, PCP, TAPEN, XTSY, ZOLP. A urine drug test (UDT) was ordered for this patient and collected on site today. Creatinine has been ordered as well for specimen validity, not for kidney function. Preliminary UDT results are not final and should not be used to determine patient care or plan of treatment. Initially a qualitative immunoassay screen will be done. Any inconsistent or positive findings will be further tested with a more comprehensive quantitative confirmation LCMS study. It is part of the treatment process of prescribing controlled substances and is considered standard of care.R53.83 Other fatigueComments:Symptoms and complaints discussed and reviewed today. No significant changes in physical findings. Continue current medical pain management. B12 injection administered after patient evaluated. 1ml IM for fatigue. (See Consent for injection-B12 document for lot number and expiration date.)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 nervous systemComments:Sudomotor test report reviewed with the patient today. The test was Positive for possible autonomic dysfunction at this time. Will follow effects of pain and current medical treatment. Future testing will help to monitor the effects of chronic illness, pain and subsequent treatment on the autonomic nervous system. May retest in 3- 6 monthsAlpha lipoic acid 100 - 200 mg tid. suggested to patient. Thishas been shown to help with the neuropathic component of pain and autonomic dysfunction.AllComments:Continue current medical pain management; injection therapy, osteopathic manipulation, PT / modalities, and consults as needed to manage chronic pain.Non - opioid pain management discussed and optionsdiscussed.Side effects discussed; anticipatory guidance given. Patient clearly understand and agree with all medical treatments and suggestions. All medicines prescribed are adequate and appropriate for this patient's complaint of pain, medical history, physical, and personal goals.Goals of Treatment are to provide adequate and appropriate multidisciplinary medical pain management to increase/ maintain patient's quality of life and functionality while maintaining satisfactory side effect profile andminimizing vermin exterminator end-organ damage. Importance of regular nutrition throughout the day discussed.Activity as toleratedContinue with PCP Functional Status Description No Information Available Mental Status Description No Information Available Referrals Refer to Reason for Referral Status Appt Date Grady Tolliver D.O. MPH Created [address] [place], [place] [id number] [phone] Grady Tolliver D.O. MPH Created [address] [place] [address] [address] [place] [id number] [phone]
--- OUTSIDE RECORDS SUMMARY | 2019-06-15 09:09 | XMS REPORT | Continuity of Care Document ---
:1985 External Reference #:[id number] Author Name Grady Tolliver DO MPH Address [address] [place] [address], [address] [place] [address] Care Team Providers Name Role Phone Marvin Collazo M.D. - Family Medicine Care Team Information [employer] Chasidy Singh M.D. - Family Medicine Care Team Information [employer] Problems Description No Information Available Social History Type Date Description Comments Sex Unknown ETOH Use Occasionally consumes alcohol Recreational Drug Use Denies Drug Use Tobacco Use Start: Unknown End: Patient is a former smoker Unknown Smoking Status Reviewed: 06/07/19 Patient is a former smoker Allergies, Adverse [...] ER (SR) morning 100mg Tablets ER 12HR Immunizations Description No Information Available Vital Signs Date Vital Result Comment 06/07/2019 2:11pm BP Systolic 122 mmHg BP Diastolic 74 mmHg Heart Rate 78 /min Respiratory Rate 20 /min Height 66 inches 5'6" Weight 192.00 lb Pain Level 7 Pain at this time. Pain Level With Medicine 6 on average with meds Pain Level Without Medicine 9 without meds BMI (Body Mass Index) 31.0 kg/m2 05/09/2019 3:00pm BP Systolic 128 mmHg BP Diastolic 86 mmHg Heart Rate 84 /min Respiratory Rate 20 /min Height 66 inches 5'6" Weight 193.00 lb Pain Level 7 Pain at this time. Pain Level With Medicine 6 on average with meds Pain Level Without Medicine 9 without meds BMI (Body Mass Index) 31.1 kg/m2 Results Description No Information Available Procedures Date Code Description Status 05/09/2019 38506 Therapeutic, Prophylactic Or Diagnostic Injection Subq/Im Completed 04/09/2019 29452 Therapeutic, Prophylactic Or Diagnostic Injection Subq/Im Completed 04/09/2019 52464 Injection For Nerve Block, Other Peripheral Nerve Or Completed Branch 04/09/201961630 Injection, Single Or Mutiple Trigger Points One Or Two Completed Muscles 04/09/201946814 Injection, Tendon Origin/Insertion Completed 04/09/201977335 Injection, Tendon Origin/Insertion Completed 04/09/2019 96790 Inject Tendon/Ligament Completed 04/09/2019 09598 Inject Tendon/Ligament Completed 04/09/2019 72295 Inject Tendon/Ligament Completed 04/09/2019 91856 Inject Tendon/Ligament Completed 03/09/2019 96659 Therapeutic, Prophylactic Or Diagnostic Injection Subq/Im Completed 03/09/2019 60611 Omt 3-4 Body Regions Completed 02/07/2019 55936 Therapeutic, Prophylactic Or Diagnostic Injection Subq/Im Completed 01/24/2019 87390 Injection For Nerve Block, Other Peripheral Nerve Or Completed Branch 01/24/201958670 Injection, Single Or Mutiple Trigger Points One Or Two Completed Muscles 01/24/201961204 Injection, Tendon Origin/Insertion Completed 01/24/201935258 Injection, Tendon Origin/Insertion Completed 01/24/201945848 Inject Tendon/Ligament Completed 01/24/2019 91454 Inject Tendon/Ligament Completed 01/24/201913229 Inject Tendon/Ligament Completed 01/24/2019 80726 Inject Tendon/Ligament Completed 01/08/2019 48942 Omt 1-2 Body Regions Completed 01/08/2019 60282 Therapeutic, Prophylactic Or Diagnostic Injection Subq/Im Completed Medical Devices Description No Information Available Encounters Type Date Location Provider Dx Diagnosis Office Visit 05/09/2019 Main Office as Of Grady Tolliver DO G89.29 Other chronic pain 2:45p 07/28/13 MPH M15.0 Primary generalized (osteo)arthritis M54.5 Low back pain M54.16 Radiculopathy, lumbar region M54.2 Cervicalgia M54.6 Pain in thoracic spine Z79.891 correction (current) use of opiate analgesic R53.83 Other fatigue 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 nervous system Office Visit 04/09/2019 3:45p Main Office as Grady Tolliver G89.29 Other chronic Of 07/28/13 DO, MPH pain M15.0 Primary generalized (osteo)arthritis M54.2 Cervicalgia M54.6 Pain in thoracic spine M54.5 Low back pain M54.16 Radiculopathy, lumbar region M65.88 Other synovitis and tenosynovitis, other site M79.18 Myalgia, other site 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 R53.83 Other [...] lumbar region M54.16 Radiculopathy, lumbar region 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 R53.83 Other fatigue Office Visit 02/07/2019 2:30p Main Office as Grady Tolliver G89.29 Other chronic Of 07/28/13 DO, MPH pain M15.0 Primary generalized (osteo)arthritis M54.16 Radiculopathy, lumbar region M79.18 Myalgia, other site Z79.891 correction (current) use of opiate analgesic R53.83 Other fatigue Office Visit 01/24/2019 3:00p Main Office as Grady Tolliver, G89.29 Other chronic Of 07/28/13 DO, MPH pain M15.0 Primary generalized (osteo)arthritis M54.5 Low back pain M54.16 Radiculopathy, lumbar region M65.88 Other synovitis and tenosynovitis, other site M79.18 Myalgia, other site 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 Office Visit 01/08/2019 2:15p Main Office as Grady Tolliver G89.29 Other chronic Of 07/28/13 DO, MPH pain M15.0 Primary generalized (osteo)arthritis M54.2 Cervicalgia M99.01 Segmental and somatic dysfunction of cervical region M54.5 Low back pain M54.6 Pain in thoracic spine 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 R53.83 Other fatigue Office Visit 12/08/2018 2:15p Main Office as Grady Tolliver G89.29 Other chronic Of 07/28/13 DO, MPH pain M15.0 Primary generalized (osteo)arthritis M54.2 Cervicalgia M54.6 Pain in thoracic spine M54.5 Low back pain 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 M99.03 Segmental and somatic dysfunction of lumbar region Assessments Date Code Description Provider 06/07/2019 G89.29 Other chronic pain Tolliver, Grady, DO, MPH 06/07/2019 M15.0 Primary generalized (osteo)arthritis Unruly Grady, DO, MPH 06/07/2019 M54.5 Low back pain Unruly Grady, DO, MPH 06/07/2019 M99.03 Segmental and somatic dysfunction of lumbar Tolliver, Grady, DO, MPH region 06/07/2019 M54.2 Cervicalgia Tolliver, Grady, DO, MPH 06/07/2019 M99.01 Segmental and somatic dysfunction of Tolliver, Grady, DO, MPH cervical region 06/07/2019 M54.6 Pain in thoracic spine Tolliver, Grady, DO, MPH 06/07/2019 M99.02 Segmental and somatic dysfunction of Tolliver, Grady, DO, MPH thoracic region 06/07/2019 R53.83 Other fatigue Tolliver, Grady, DO, MPH 06/07/2019 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 Tolliver, Grady , DO, MPH 05/09/2019 G89.29 Other chronic pain Tolliver, Grady, DO, MPH 05/09/2019 M15.0 Primary generalized (osteo)arthritis Tolliver, Grady, DO, MPH 05/09/2019 M54.5 Low back pain Tolliver, Grady, DO, MPH 05/09/2019 M54.16 Radiculopathy, lumbar region Tolliver, Grady, DO, MPH 05/09/2019 M54.2 Cervicalgia Tolliver, Grady, DO, MPH 05/09/2019 M54.6 Pain in thoracic spine Tolliver, Grady, DO, MPH 05/09/2019 Z79.891 correction (current) use of opiate analgesic Tolliver, Grady [...] DO, MPH 04/09/2019 M54.16 Radiculopathy, lumbar region Tolliver, Grady, DO, MPH 04/09/2019 M65.88 Other synovitis and tenosynovitis, other Tolliver, Grady, DO , MPH site 04/09/2019 M79.18 Myalgia, other site Tolliver, Grady, DO, MPH 04/09/2019 Z79.891 correction (current) use of opiate analgesic Tolliver, Grady , DO, MPH 04/09/2019 R53.83 Other fatigue Tolliver, Grady, DO, MPH 03/09/2019 G89.29 Other chronic pain Tolliver, Grady, DO, MPH 03/09/2019 M15.0 Primary generalized (osteo)arthritis Tolliver, Grady, DO, MPH 03/09/2019 M54.2 Cervicalgia Tolliver, Grady, DO, MPH 03/09/2019 M99.01 Segmental and [...] region Tolliver, Grady, DO, MPH 03/09/2019 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 Tolliver, Grady , DO, MPH 03/09/2019 R53.83 Other fatigue Tolliver, Grady, DO, MPH 02/07/2019 G89.29 Other chronic pain Tolliver, Grady, DO, MPH 02/07/2019 M15.0 Primary generalized (osteo)arthritis Tolliver, Grady, DO, MPH 02/07/2019 M54.16 Radiculopathy, lumbar region Tolliver, Grady, DO, MPH 02/07/2019 M79.18 Myalgia, other site Tolliver, Grady, DO, MPH 02/07/2019 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 Tolliver, Grady [...] site Tolliver, Grady, DO, MPH 01/24/2019 Z79.891 correction (current) use of opiate analgesic Tolliver, Grady [...] spine Tolliver, Grady, DO, MPH 01/08/2019 Z79.891 correction (current) use of opiate analgesic Tolliver, Grady [...] pain Tolliver, Grady, DO, MPH 12/08/2018 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 Symptoms and complaints discussed and reviewed today. No significant changes in physical findings. Continue current medical pain management.M15.0 Primary generalized (osteo)arthritisComments:Chronic. Symptoms and complaints discussed and reviewed today. No significant changes in physical findings. Continue current medical pain management.M54.5 Low back painComments: Chronic. Symptoms and complaints discussed and reviewed today. Notable somatic dysfunctions warranting OMT. Patient is stable and comfortable with current medical therapy. Will also request injection therapy to be authorized under her insurance carrier.M99.03 Segmental and somatic dysfunction of lumbar regionComments:Chronic. Symptoms and complaints discussed and reviewed today. Lumbar somatic dysfunctions noted warranting OMT. Continue current medical pain management and OMT. [id number]. OMT performed after evaluation. HVLA.M54.2 CervicalgiaComments:Chronic. Symptoms and complaints discussed and reviewed today. Notable somatic dysfunctions warranting OMT to cervicals. Patient is stable and comfortable with current medical therapy.M99.01 Segmental and somatic dysfunction of cervical regionComments:Chronic. Symptoms and complaints discussed and reviewed today. Somatic dysfunctions noted warrantingOMT. Continue current medical pain management and OMT. [id number]. OMT performed.M54.6 Pain in thoracic spineComments:Chronic. Symptoms and complaints discussed and reviewed today. Notable thoracic somatic dysfunctionswarranting OMT. Patient is stable and comfortable when current medical therapy is rendered.M99.02 Segmental and somatic dysfunction of thoracic regionComments:Chronic. Symptoms and complaints discussed and reviewed today. Notable somatic dysfunctions noted warranting OMT. Continue current medical pain management and OMT. [id number]. OMT performed after evaluation. HVLA.R53.83 Other fatigueComments:Symptoms and complaints discussed and reviewed today. No significant changes in physical findings. Continue current medical pain management. B12 injection administered after patient evaluated. 1ml IM for fatigue. (See Consent for injection-B12 document for lot number and expiration date.)Z79.891 termite helper ( current) use of opiate analgesicNew Labs:Urine Drug Screen, Ordered: Comments:Urine drug screen sample taken. Rapid Point of [...] XTSY, ZOLP. A urine drug test (UDT) using a rapid screen cup was ordered for this patient and collected on site today. Creatinine has been ordered as well for specimen validity, not for kidney function. Urine Drug Testing is a mandatory component of chronic opioid management, as part of the baseline assessment and ongoing re-assessment of opioid therapy. Per [place] [employer], [place] Non- Acute Pain Medical Treatment Guidelines, section F.3.d.i. This test is to be used in conjunction with other clinical information when decisions are to be made to continue, adjust or discontinue treatment. This information includes clinical observation, results of addiction screening, pill counts, and prescription drug monitoring reports. Preliminary UDT screen results are not final and should not be used to determine patient care or plan of treatment. This sample will be sent out for a more comprehensive quantitative confirmation LCMS study. It is part of the treatment process of prescribing controlled substances and is considered standard of care at this clinic.AllComments:The injections that we are requesting on the behalf of the patient areTendon Sheath Injection () quantity of 4, Tendon Origin Insertion (57959) quantity of 2, Trigger Point Injection () quantity of 2, Bilateral Peripheral Nerve Block (51018) quantity of 2. If she is able to have injections as a secondary option for pain relief, that may be another option other than increases in opioid medications. Please feel free to contact the office with any questions.All above symptoms and complaints discussed as well as diagnoses reviewed.Continue trial of opioid pain management - note changes below; injection therapy, osteopathic manipulation (OMT), PT / modalities, and consults as needed to manage chronic pain.Side effects discussed; anticipatory guidance given. Patient clearly understands and agrees with all medical treatments and suggestions. All medicines prescribed are adequate and appropriate for this patient's complaint of pain, medical history, physical, and personal goals.Goals of Treatment are to provide adequate and appropriate multidisciplinary medical pain management to increase/ maintain patient's quality of life and functionality while maintaining satisfactory side effect profile and minimizing fdc end-organ damage. Activity as toleratedContinue with PCP Functional Status Description No Information Available Mental Status Description No Information Available Referrals Refer to Reason for Referral Status Appt Date Grady Tolliver D.O. MPH Created [address] [place] [id number] [phone] Grady Tolliver D.O. MPH Created [address] [place] [phone]
--- OUTSIDE RECORDS SUMMARY | 2019-06-15 09:09 | XMS REPORT | Continuity of Care Document ---
:1985 External Reference #:[id number] Author Name Daysi Sanchez MD (transmitted by agent of provider Ruthy Khan) Address [address] [facility] [address] [place] [address] Care Team Providers Name Role Phone Grady Tolliver DO - Interventional Care Team Information [employer] [phone] Pain Medicine Chasidy Singh M.D. - Family Medicine Care Team Information [employer] Problems Active Problems Provider Date Anxiety Sara Vicente NP Onset: 10/12/2017 Chronic back pain Sara Vicente NP Onset: 10/12/2017 Ex-smoker Doni Bethea M.D.,FACP Onset: 08/16/2018 Social History Type Date Description Comments Sex Unknown Tobacco Use Start: Unknown End: Former Cigarette Smoker Unknown Smoking Status Reviewed: 05/16/19 Former Cigarette Smoker ETOH Use 02/08/2018 Occasionally consumes alcohol Recreational Drug Use Denies Drug Use Tobacco Use Start: Unknown End: Patient is a former smoker Exercise Type/Frequency Exercises regularly Allergies, Adverse Reactions, Alerts Description No Known Drug Allergies Medications Active Medications SIG Qnty Indications Ordering Date Provider Bupropion 1 by mouth every 60tabs F32.1 Melany Patton, 04/26/2019 Hydrochloride ER (XL) day M.D. 300mg Tablets ER 24HR Escitalopram Oxalate 1 by mouth every 30tabs Chasidy Singh MD 12/13/2018 day 20mg Tablets Breo Ellipta one inhalation 28units J45.40 Chasidy Singh MD 12/13/2018 once a day 100-25mcg/Inh Aerosol Ventolin HFA 2 by mouth every 4 8gm J45.40 Chasidy Singh MD 12/13/2018 hours as needed 108(90Base) mcg/Act Aerosol Hydroxyzine HCL 1-2 tabs by mouth 60tabs G47.00 Chasidy Singh MD 10/11/2018 25mg at bedtime as Tablets needed insomnia Clonazepam take once daily as 30tabs Chasidy Singh MD 0.5mg needed Tablets Nexplanon Unknown 68mg Implant Oxycodone HCL 1 tab 8h as needed Unknown 10mg Tablets Tizanidine HCL 1 cap by mouth Unknown 4mg every 8 hours as Capsules needed History Medications Bupropion Hydrochloride 1 by mouth a 30tabs F32.1 Chasidy Singh MD 2018 - ER (SR) day in am 04/26/2019 150mg Tablets ER 12HR Immunizations Description No Information Available Vital Signs Date Vital Result Comment 05/16/2019 2:35pm Height 66 inches 5'6" Weight 189.00 lb Heart Rate 81 /min BP Systolic Sitting 115 mmHg BP Diastolic Sitting 76 mmHg Body Temperature 98.6 F O2 % BldC Oximetry 98 % BMI (Body Mass Index) 30.5 kg/m2 03/14/2019 9:25am Height 66 inches 5'6" Weight 180.00 lb Heart Rate 61 /min BP Systolic Sitting 110 mmHg Rue reg cuff BP Diastolic Sitting 66 mmHg Rue reg cuff O2 % BldC Oximetry 98 % BMI (Body Mass Index) 29.0 kg/m2 Results Description No Information Available Procedures Date Code Description Status 02/05/2019 78531 Pulmonary Function><Bronchodil Completed Medical Devices Description No Information Available Encounters Type Date Location Provider Dx Diagnosis Office Visit 03/14/2019 [facility] Chasidy Singh MD F41.9 Anxiety disorder, 9:20a Medicine - [facility] unspecified F32.1 Major depressive disorder, single episode, moderate Office Visit 12/13/2018 10:40a Obi Singh F41.9 Anxiety disorder, Medicine - [facility] unspecified J45.40 Moderate persistent asthma, uncomplicated R05 Cough Assessments Date Code Description Provider 05/16/2019 F32.1 Major depressive disorder, single episode, Daysi Sanchez MD moderate 05/16/2019 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, Daysi Sanchez MD including tongue 03/14/2019 F41.9 Anxiety disorder, unspecified Chasidy Singh MD 03/14/2019 F32.1 Major depressive disorder, single episode, Chasidy Singh MD moderate 02/05/2019 J45.40 Moderate persistent asthma, uncomplicated Ranjana Hector MD 12/13/2018 F41.9 Anxiety disorder, unspecified Chasidy Singh MD 12/13/2018 J45.40 Moderate persistent asthma, uncomplicated Chasidy Singh MD 12/13/2018 R05 Cough Chasidy Singh MD Plan of Treatment 05/16/2019 - Daysi Sanchez MDF32.1 Major depressive disorder, single episode , moderateFollow up:2-3 uwvbilE61.29 Other disturbances of oral epithelium, including tongueReferral:Link Farias MD, Otolaryngology Functional Status Description No Information Available Mental Status Description No Information Available Referrals Refer to Dr Reason for Referral Status Appt Date Link Farias MD Created [address] [place] [address] [phone]
[2019-06-15 09:11] VITALS: BP 118/55
--- NOTE | 2019-06-15 09:58 | UC ---
Ear Complaint HPI - HPI Summary HPI Summary: 3 DAYS OF PAIN IN THE LEFT EAR/JAW. HAS MILD COUGH BUT NO OTHER URI SYMPTOMS. NO FEVER. ADMITS SHE DOES CHEW GUM A LOT SHE RECENTLY QUIT SMOKING AND SHE DOES NOTICE SHE CLENCHES HER JAW A LOT. - History of Current Complaint Chief Complaint: UCEar Stated Complaint: EAR PAIN Time Seen by Provider: 06/15/19 09:22 Hx Obtained From: Patient Hx Last Menstrual Period: nexiplan Onset/Duration: Gradual Onset, Lasting Days, Still Present Severity Initially: Moderate Severity Currently: Moderate Pain Intensity: 7 Pain Scale Used: 0-10 Numeric Aggravating Factors: Nothing Alleviating Factors: Nothing Associated Signs/Symptoms: Negative: Discharge, Hearing Loss, URI Symptoms - Allergies/Home Medications Allergies/Adverse Reactions: Allergies Allergy/AdvReac Type Severity Reaction Status Date / Time No Known Allergies Allergy Verified 06/15/19 09:11 PMH/Surg Hx/FS Hx/Imm Hx - Additional Past Medical History Additional PMH: CHRONIC BACK PAIN Respiratory History: Asthma - Surgical History Surgical History: None - Family History Known Family History: Positive: Cardiac Disease, Hypertension, Diabetes, Respiratory Disease - Social History Alcohol Use: Occasionally Substance Use Type: Marijuana Smoking Status (MU): Former Smoker Type: Cigarettes Amount Used/How Often: 1/2 PPD Length of Time of Smoking/Using Tobacco: 15 years Have You Smoked in the Last Year: Yes - Immunization History Most Recent Influenza Vaccination: 2017 Review of Systems All Other Systems Reviewed And Are Negative: Yes Constitutional: Positive: Negative ENT: Positive: Ear Ache Respiratory: Positive: Cough Cardiovascular: Positive: Negative Gastrointestinal: Positive: Negative Physical Exam Triage Information Reviewed: Yes Appearance: Well-Appearing, No Pain Distress, Well-Nourished Vital Signs: Initial Vital Signs Temp 98.8 F 06/15/19 09:07 Pulse 59 06/15/19 09:07 Resp 17 06/15/19 09:07 BP 118/55 06/15/19 09:07 Pulse Ox 100 06/15/19 09:07 Vital Signs Reviewed: Yes Eyes: Positive: Conjunctiva Clear ENT: Positive: Hearing grossly normal, Pharynx normal, TMs normal, Other - TTP LEFT TMJ Neck: Positive: Supple, Nontender, No Lymphadenopathy Respiratory: Positive: No respiratory distress, No accessory muscle use Cardiovascular: Positive: Pulses Normal Abdomen Description: Positive: Soft Musculoskeletal: Positive: No Edema Neurological: Positive: Alert Psychological: Positive: Age Appropriate Behavior Skin: Negative: Rashes Ear Complaint Course/Dx - Course Course Of Treatment: CLINICAL PRESENTATION CONSISTENT WITH TMJ. NO EAR INFECTION ON PHYSICAL EXAM. WILL TRY A MUSCLE RELAXER, HEAT, ANTI-INFLAMMATORIES. ADVISED FOLLOW-UP WITH HER DENTIST TO EVALUATE FOR JAW CLENCHING/TEETH GRINDING. SHE MAY ALSO BENEFIT FROM TMJ SPECIALIST. COUNSELED PATIENT ON USING FLEXERIL WITH CAUTION SHE TAKES CHRONIC NARCOTICS. WHEN ASKED ABOUT THE KLONOPIN SHE STATES SHE USES THIS RARELY FOR ACUTE ANXIETY. - Differential Dx/Diagnosis Provider Diagnosis: TMJ (temporomandibular joint syndrome) Discharge ED - Sign-Out/Discharge Documenting (check all that apply): Patient Departure All imaging exams completed and their final reports reviewed: No Studies - Discharge Plan Condition: Stable Disposition: HOME Prescriptions: Cyclobenzaprine TAB* [Flexeril TAB*] 10 mg PO DAILY #30 tab Ibuprofen TAB* [Motrin TAB* 800 MG] 800 mg PO Q8H PRN #30 tab PRN Reason: Pain Patient Education Materials: Temporomandibular Disorder (ED) Forms: *Work Release Referrals: Luisito Farias MD [Medical Doctor] - 2 Weeks Chasidy Singh MD [Primary Care Provider] - If Needed Additional Instructions: YOUR CLINICAL PRESENTATION IS CONSISTENT WITH TEMPOROMANDIBULAR JOINT DISORDER. THIS MAY BE EXACERBATED BY ACTIVITIES SUCH GUM CHEWING, JAW CLENCHING/ TEETH GRINDING. I RECOMMEND YOU FOLLOW-UP WITH YOUR DENTIST OR A TMJ SPECIALIST TO EVALUATE FOR THIS. YOU MAY BENEFIT FROM A SALES RECRUITMENT SPECIALIST. TAKE THE MUSCLE RELAXER BEFORE BED. GIVEN YOU TAKE CHRONIC NARCOTICS YOU MUST USE CAUTION THIS MEDICATION CAN ALSO BE SEDATING. TMJ SPECIALIST DR. ABDIAS MARK, DDS [address] [place] [address] What are temporomandibular joint disorders? Temporomandibular joint disorders are problems with the jaw joint and the muscles around it. The jaw joint, called the temporomandibular joint, is located in front of the ear where the jawbone connects to your head. To feel the joint, place your finger on your cheek just in front of your ear and then open and close your mouth. When doctors refer to temporomandibular joint disorders, they often call it TMJ , for short. TMJ can be caused by many problems, including arthritis. More often it is due to a combination of stress, jaw clenching, teeth grinding, and other things that strain the jaw joint and the muscles around it. What are the symptoms of TMJ? The main symptom of TMJ is a dull pain in the jaw muscles that doesnt go away. The pain is often on just one side of the face , near the ear. Sometimes the pain also affects the ear, jaw, or back of the neck. It is usually worse when chewing. Some people just have headaches with TMJ. Others might hear a clicking or popping sound or have a crunchy feeling in the joint when they open and close their mouth. The most common presenting signs and symptoms are: - Pain (96.1 percent) - Ear discomfort or dysfunction (82.4 percent) - Headache (79.3 percent) - TMJ discomfort or dysfunction (75.0 percent) Should I see a doctor or nurse? If the pain in your face or jaw is bothering you and does not go away, you should see your doctor or nurse. What tests might I need? There is no single test that can show if you have TMJ. Your doctor or nurse should be able to tell if you have TMJ by learning about your symptoms and doing an exam. Unless the doctor finds something unusual in the exam, most patients will NOT need X-rays or an MRI (an imaging test that creates pictures of the inside of your body). How is TMJ treated? No single treatment for TMJ works for everyone. Most of the time, medicines and simple lifestyle changes can help. Most patients get better over time, even without treatment, so patience is important. Your doctor or nurse will help you find the right mix of treatments for you. He or she might refer you to a dentist who specializes in TMJ. Treatment options include: - Medicines to relieve pain and relax the muscles There are several types of medicines used to treat TMJ. These include nonsteroidal antiinflammatory drugs ( NSAIDs), muscle relaxants, and certain medicines used for depression. ( Medicines for depression can relieve pain even in people who are not depressed. ) Your doctor will decide which medicine or group of medicines is best for you. - Jaw exercises There are simple jaw exercises that seem to help some people. Ask your doctor to show you how to do them. - Bite plates/splints These are special devices that fit in your mouth and keep you from grinding your teeth at night. They are made out of either a hard or soft plastic and might be made specially to fit your mouth. If you have sleep apnea, be sure to tell your doctor as the bite plate or splint might make your sleep apnea worse. If these treatments dont help, your doctor might suggest that you see a specialist, such as an oral surgeon. The specialist might use medicines given by injection (shots) to treat the pain. It is rare that people need surgery for TMJ. Is there anything I can do on my own to feel better? Yes. You might feel better if you: - Avoid doing things that make the pain worse, such opening your mouth too wide. - Eat soft foods that dont require a lot of chewing. - Practice relaxing You can learn methods to relax your body, such as doing deep breathing exercises. Ask your doctor or nurse about these methods. Relaxing the mind can help with how the body feels pain. People can learn to quiet their pain or make it less bothersome. - Use ice packs to ease the pain Use a bag of ice, bag of frozen peas, or cold gel pack once every 2 hours, for 20 minutes each time. Put a towel or cloth between the ice and your skin. Do not put the ice directly on your skin. - Put heat on the painful area Wet a clean washcloth with warm water and put it on the area. When the washcloth cools, reheat it with warm water and put it back on. Repeat these steps for 10 to 15 minutes every few hours. - Avoid stimulants, such as coffee, tea, luis, or decongestant medicines, since these can make your anxiety worse. - Billing Disposition and Condition Condition: STABLE Disposition: Home
== END 2019-06-15 09:58 | disposition home or self-care (01) ==
LOC: UCEAST 09:04
DX: M26.602 Left temporomandibular joint disorder, unspecified (principal); R05 Cough; J45.909 Unspecified asthma, uncomplicated; Z87.891 Personal history of nicotine dependence
CPT/HCPCS: 99212; G0463

== ENCOUNTER 2019-07-17 09:58 | Emergency (ER) | payer OTHER ==
[2019-07-17] MEDS ORDERED: Ondansetron INJ* 2 MG/ML VIAL IV ONE (10:18)
[2019-07-17] MEDS ORDERED: Ketorolac INJ* 30 MG/ML 1 ML VIAL IV ONE (10:18)
--- NOTE | 2019-07-17 10:19 | ED ---
Abdominal Pain/Female - HPI Summary HPI Summary: This pt is a 34 y/o female presenting to [facility] c/o right lower abd pain since yesterday. Pt denies any heavy lifting. Pt notes associates symptoms of nausea. Denies vomiting, diarrhea, fevers, chest pain, SOB. Pt currently rates her pain 8/10 in severity. Denies any risk for . Pt has hx of ovarian cyst when she was a teen. LMP: last month and it was late but reports her periods vary as she has a control implant on left arm. PMHx: anxiety, depression, chronic back pain. Pt admits to occasional alcohol and marijuana use. She is a former smoker. - History of Current Complaint Chief Complaint: EDAbdPain Stated Complaint: LOWER ABD PAIN PER PT Time Seen by Provider: 07/17/19 10:08 Hx Obtained From: Patient Hx Last Menstrual Period: nexiplan Onset/Duration: Lasting Days - 1, Still Present Timing: Days - 1 Severity Currently: Severe Pain Intensity: 8 Pain Scale Used: 0-10 Numeric Location: Discrete At: RLQ Radiates: No Aggravating Factor(s): Nothing Alleviating Factor(s): Nothing Associated Signs and Symptoms: Positive: Nausea. Negative: Fever, Chest Pain, Vomiting, Diarrhea, Other: - SOB Allergies/Adverse Reactions: Allergies Allergy/AdvReac Type Severity Reaction Status Date / Time No Known Allergies Allergy Verified 07/17/19 10:04 Home Medications: Home Medications BuPROPion XL* [Bupropion XL*] 300 mg PO DAILY 07/17/19 [History Confirmed ] Meloxicam(NF) [Mobic(NF)] 15 mg PO DAILY 07/17/19 [History Confirmed 07/17/19] tiZANidine TAB* [Zanaflex TAB*] 2 mg PO Q12H 07/17/19 [History Confirmed ] PMH/Surg Hx/FS Hx/Imm Hx Endocrine/Hematology History: Denies: Hx Diabetes, Hx Thyroid Disease Cardiovascular History: Denies: Hx Hypertension, Hx Pacemaker/ICD Respiratory History: Reports: Hx Asthma - A CHILD/RESOLVED Denies: Hx Chronic Obstructive Pulmonary Disease (COPD) GI History: Denies: Hx Ulcer History: Denies: Hx Renal Disease Musculoskeletal History: Reports: Hx Back Problems - chronic back pain Sensory History: Denies: Hx Hearing Aid Neurological History: Denies: Hx Dementia, Hx Transient Ischemic Attacks (TIA) Psychiatric History: Reports: Hx Anxiety, Hx Depression Denies: Hx Panic Disorder - Surgical History Surgical History: None Infectious Disease History: No Infectious Disease History: Denies: Hx Hepatitis, Hx Human Immunodeficiency Virus (HIV), History Other Infectious Disease, Traveled Outside the [place] in Last 30 Days - Family History Known Family History: Positive: Cardiac Disease, Hypertension, Diabetes, Respiratory Disease - Social History Alcohol Use: Occasionally Substance Use Type: Reports: Marijuana Hx Tobacco Use: No Smoking Status (MU): Former Smoker Type: Cigarettes Amount Used/How Often: 1/2 PPD Length of Time of Smoking/Using Tobacco: 15 years Have You Smoked in the Last Year: Yes Review of Systems Negative: Fever Negative: Chest Pain Positive: Abdominal Pain, Nausea. Negative: Vomiting, Diarrhea All Other Systems Reviewed And Are Negative: Yes Physical Exam - Summary Physical Exam Summary: VITAL SIGNS: Reviewed. GENERAL: Patient is a well-developed and nourished female who is lying comfortable in the stretcher. Patient is not in any acute respiratory distress. HEAD AND FACE: No signs of trauma. No ecchymosis, hematomas or skull depressions. No sinus tenderness. EYES: PERRLA, EOMI x 2, No injected conjunctiva, no nystagmus. EARS: Hearing grossly intact. Ear canals and tympanic membranes are within normal limits. MOUTH: Oropharynx within normal limits. NECK: Supple, trachea is midline, no adenopathy, no JVD, no carotid bruit, no c- spine tenderness, neck with full ROM. CHEST: Symmetric, no tenderness at palpation LUNGS: Clear to auscultation bilaterally. No wheezing or crackles. CVS: Regular rate and rhythm, S1 and S2 present, no murmurs or gallops appreciated. ABDOMEN: Soft. No signs of distention. No rebound, no guarding, and no masses palpated. Bowel sounds are normal. Right pelvic tenderness. Questionable right lower quadrant tenderness. EXTREMITIES: FROM in all major joints, no edema, no cyanosis or clubbing. NEURO: Alert and oriented x 3. No acute neurological deficits. Speech is normal and follows commands. SKIN: Dry and warm Triage Information Reviewed: Yes Vital Signs On Initial Exam: Initial Vitals Temp Pulse Resp BP Pulse Ox 98.2 F 76 16 121/72 99 07/17/19 10:02 07/17/19 10:02 07/17/19 10:02 07/17/19 10:02 07/17/19 10:02 Vital Signs Reviewed: Yes Procedures - Sedation Patient Received Moderate/Deep Sedation with Procedure: No Diagnostics - Vital Signs Vital Signs Temp Pulse Resp BP Pulse Ox 07/17/19 10:02 98.2 F 76 16 121/72 99 - Laboratory Result Diagrams: 07/17/19 10:24 07/17/19 10:24 Lab Statement: Any lab studies that have been ordered have been reviewed, and results considered in the medical decision making process. - CT CT abdomen/pelvis CT Interpretation Completed By: Radiologist Summary of CT Findings: IMPRESSION: Normal appendix. Myomatous changes of the uterus are noted. No hernias are noted. No dilated loops of bowel are noted. No other masses or fluid collections are noted. Dr. Mckinley has reviewed this report. - Ultrasound No standard instances Ultrasound Interpretation Completed By: Radiologist Summary of Ultrasound Findings: Transvaginal US IMPRESSION: Endometrial echoes are unremarkable. Calcification in the mid uterus with posterior acoustic shadowing. Left ovarian cyst measuring up to 1.[address] Mckinley has reviewed this report. Abdominal Pain Fem Course/Dx - Course Course Of Treatment: This pt is a 34 y/o female presenting to [facility] c/o right lower abd pain since yesterday. Pt denies any heavy lifting. Pt notes associates symptoms of nausea. Denies vomiting, diarrhea, fevers, chest pain, SOB. Pt currently rates her pain 8/10 in severity. Denies any risk for . Pt has hx of ovarian cyst when she was a teen. LMP: last month and it was late but reports her periods vary as she has a control implant. PMHx: anxiety, depression, chronic back pain. Pt admits to occasional alcohol and marijuana use. She is a former smoker. . Blood test results w/o a significant abnormality. test is negative. Transvaginal U/S impression: endometrial echoes are unremarkable. Calcification in the mid uterus with posterior acoustic shadowing. Left ovarian cyst measuring up to 1.6 cm. In the ED course she was given toradol for pain and Zofran for nausea. Patient continues to have right lower quadrant pain therefore I decided to do an abdominal pelvic CT to rule out appendicitis. Abdominal and pelvic CT impression: shift. Normal appendix. Myomatous changes in the uterus are noted. No hernias are noted. No dilated loops of bowel noted. No other masses or fluid collections are noted. I offered a pelvic exam but patient declined. I discussed all the findings and test results with the patient. Patient was instructed to return to the emergency room immediately if any of the symptoms return worsens. Plan of care was discussed with the patient and understands and agrees. All questions were answered at patient satisfaction. There were no further complaints or concerns. Lung exam before discharge: CTA B/ L. Good air exchange. No wheezing or crackles heard. CVS: S1 and S2 present. No murmurs appreciated. Patient is alert and oriented x 3. Patient is hemodynamically stable. Patient will be discharged home with follow up from her PCP and OBGYN in the next 2-3 days. - Diagnoses Differential Diagnosis: Positive: Appendicitis, Constipation, Diverticulitis, Ectopic , Ovarian Cyst, Renal Colic, Urinary Tract Infection Provider Diagnoses: Lower abdominal pain Discharge ED - Sign-Out/Discharge Documenting (check all that apply): Patient Departure - Discharge home - Discharge Plan Condition: Stable Disposition: HOME Patient Education Materials: Abdominal Pain (ED) Referrals: Chasidy Singh MD [Primary Care Provider] - Additional Instructions: Take ibuprofen for pain. FOLLOW UP WITH YOUR PRIMARY CARE PROVIDER and OBGYN IN 2-3 DAYS. RETURN TO THE ED FOR ANY NEW OR WORSENING SYMPTOMS. - Billing Disposition and Condition Condition: STABLE Disposition: Home - Attestation Statements Document Initiated by Devaughn: Yes Documenting Scribe: Christie Camacho Provider For Whom Devaughn is Documenting (Include Credential): Dav Mckinley MD Scribe Attestation: Christie Saba, scribed for Dav Mckinley MD on 07/17/19 at 2142. Scribe Documentation Reviewed: Yes Provider Attestation: The documentation as recorded by the Christie dalton accurately reflects the service I personally performed and the decisions made by , Dav Mckinley MD Status of Scribe Document: Viewed
[2019-07-17 10:35] LABS: ABS Basophils 0.1 10^3/ul (0-0.2); ABS Eosinophils 0.3 10^3/ul (0-0.6); ABS Lymphocytes 1.9 10^3/ul (1.0-4.8); ABS Monocytes 0.6 10^3/ul (0-0.8); ABS Neutrophils 5.5 10^3/ul (1.5-7.7); Eosinophil % 3.7 %; Hematocrit 38 % (35-47); Hemoglobin 12.7 g/dL (12.0-16.0); Lymphocyte % 22.7 %; Mean Corpuscular HGB Conc 34 g/dL (31-36); Mean Corpuscular Hemoglobin 30 pg (27-31); Mean Corpuscular Volume 89 fL (80-97); Mean Platelet Volume 8.1 fL (7.4-10.4); Platelet Count 295 10^3/uL (150-450); Red Blood Count 4.23 10^6 /uL (3.70-4.87); Red Cell Distribution Width 13 % (10-15); White Blood Count 8.4 10^3/uL (3.5-10.8)
--- OUTSIDE RECORDS SUMMARY | 2019-07-17 10:43 | XMS REPORT | Continuity of Care Document ---
:1985 External Reference #:[id number] Author Name Grady Tolliver DO MPH Address [address] [place] [address], [address] [place] [address] Care Team Providers Name Role Phone Marvin Collazo M.D. 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 - Family Medicine Care Team Information [employer] Plant Operator Problems Description No Information Available Social History Type Date Description Comments Sex Unknown ETOH Use Occasionally consumes alcohol Recreational Drug Use Denies Drug Use Tobacco Use Start: Unknown End: Patient is a former smoker Unknown Smoking Status Reviewed: 07/09/19 Patient is a former smoker Allergies, Adverse [...] Available Vital Signs Date Vital Result Comment 07/09/2019 2:38pm BP Systolic 128 mmHg BP Diastolic 84 mmHg Heart Rate 76 /min Respiratory Rate 20 /min Height 66 inches 5'6" Weight 191.00 lb Pain Level 7 Pain at this time. Pain Level With Medicine 6 on average with meds Pain Level Without Medicine 9 without meds Pain Level After Procedure 4 BP Systolic Recheck 130 mmHg Pulse: 92 BP Diastolic Recheck 80 mmHg Pulse: 92 BMI (Body Mass Index) 30.8 kg/m2 06/07/2019 2:11pm BP Systolic 122 mmHg BP Diastolic 74 mmHg Heart Rate 78 /min Respiratory Rate 20 /min Height 66 inches 5'6" Weight 192.00 lb Pain Level 7 Pain at this time. Pain Level With Medicine 6 on average with meds Pain Level Without Medicine 9 without meds BMI (Body Mass Index) 31.0 kg/m2 Results Description No Information Available Procedures Date Code Description Status 06/07/2019 39603 Omt 1-2 Body Regions Completed 06/07/2019 74067 Therapeutic, Prophylactic Or Diagnostic Injection Subq/Im Completed 05/09/2019 00236 Therapeutic, Prophylactic Or Diagnostic Injection Subq/Im Completed 04/09/2019 73656 Therapeutic, Prophylactic Or Diagnostic Injection Subq/Im Completed 04/09/2019 14954 Injection For Nerve Block, Other Peripheral Nerve Or Completed Branch 04/09/201931227 Injection, Single Or Mutiple Trigger Points One Or Two Completed Muscles 04/09/201939736 Injection, Tendon Origin/Insertion Completed 04/09/201913869 Injection, Tendon Origin/Insertion Completed 04/09/2019 38307 Inject Tendon/Ligament Completed 04/09/2019 96568 Inject Tendon/Ligament Completed 04/09/2019 07310 Inject Tendon/Ligament Completed 04/09/2019 66982 Inject Tendon/Ligament Completed 03/09/2019 51490 Therapeutic, Prophylactic Or Diagnostic Injection Subq/Im Completed 03/09/2019 79942 Omt 3-4 Body Regions Completed 02/07/2019 28091 Therapeutic, Prophylactic Or Diagnostic Injection Subq/Im Completed 01/24/2019 81818 Injection For Nerve Block, Other Peripheral Nerve Or Completed Branch 01/24/201913392 Injection, Single Or Mutiple Trigger Points One Or Two Completed Muscles 01/24/201962399 Injection, Tendon Origin/Insertion Completed 01/24/2019 82911 Injection, Tendon Origin/Insertion Completed 01/24/2019 06757 Inject Tendon/Ligament Completed 01/24/2019 Inject Tendon/Ligament Completed 01/24/2019 Inject Tendon/Ligament Completed 01/24/2019 Inject Tendon/Ligament Completed 01/08/2019 19876 Omt 1-2 Body Regions Completed 01/08/2019 50621 Therapeutic, Prophylactic Or Diagnostic Injection Subq/Im Completed Medical Devices Description No Information Available Encounters Type Date Location Provider Dx Diagnosis Office Visit 06/07/2019 Main Office as Of Grady Tolliver DO, G89.29 Other chronic pain 2:15p 07/28/13 MPH M15.0 Primary generalized (osteo)arthritis M54.5 Low back pain M99.03 Segmental and somatic dysfunction of lumbar region M54.2 Cervicalgia M99.01 Segmental and somatic dysfunction of cervical region M54.6 Pain in thoracic spine M99.02 Segmental and somatic dysfunction of thoracic region R53.83 Other fatigue Z79.891 half-way (current) use of opiate analgesic Office Visit 05/09/2019 2:45p Main Office as Grady Tolliver G89.29 Other chronic Of 07/28/13 DO, MPH pain M15.0 Primary generalized (osteo)arthritis M54.5 Low back pain M54.16 Radiculopathy, lumbar region M54.2 Cervicalgia M54.6 Pain in thoracic spine 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 R53.83 Other [...] other site M79.18 Myalgia, other site 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 R53.83 Other [...] lumbar region M54.16 Radiculopathy, lumbar region 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 R53.83 Other fatigue Office Visit 02/07/2019 2:30p Main Office as Grady Tolliver G89.29 Other chronic Of 07/28/13 DO, MPH pain M15.0 Primary generalized (osteo)arthritis M54.16 Radiculopathy, lumbar region M79.18 Myalgia, other site Z79.891 half-way (current) use of opiate analgesic R53.83 Other fatigue Office Visit 01/24/2019 3:00p Main Office as Grady Tolliver G89.29 Other chronic Of 07/28/13 DO, MPH pain M15.0 Primary generalized (osteo)arthritis M54.5 Low back pain M54.16 Radiculopathy, lumbar region M65.88 Other synovitis and tenosynovitis, other site M79.18 Myalgia, other site Z79.891 half-way (current) use of opiate analgesic Office Visit 01/08/2019 2:15p Main Office as Grady Tolliver G89.29 Other chronic Of 07/28/13 DO, MPH pain M15.0 Primary generalized (osteo)arthritis M54.2 Cervicalgia M99.01 Segmental and somatic dysfunction of cervical region M54.5 Low back pain M54.6 Pain in thoracic spine 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 R53.83 Other fatigue Assessments Date Code Description Provider 07/09/2019 G89.29 Other chronic pain Tolliver, Grady, DO, MPH 07/09/2019 M15.0 Primary generalized (osteo)arthritis Unruly Grady, DO, MPH 07/09/2019 M54.5 Low back pain Tolliver, Grady, DO, MPH 07/09/2019 M99.03 Segmental and somatic dysfunction of lumbar Tolliver, Grady, DO, MPH region 07/09/2019 M54.16 Radiculopathy, lumbar region Tolliver, Grady, DO, MPH 07/09/2019 M65.88 Other synovitis and tenosynovitis, other Tolliver, Grady, DO , MPH site 07/09/2019 M79.18 Myalgia, other site Tolliver, Grady, DO, MPH 07/09/2019 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 Tolliver, Grady , DO, MPH 07/09/2019 R53.83 Other fatigue Tolliver, Grady, DO, MPH 07/09/2019 Z13.31 Encounter for screening for depression Tolliver, Grady, DO, MPH 06/07/2019 G89.29 Other chronic pain Tolliver, Grady, DO, MPH 06/07/2019 M15.0 Primary generalized (osteo)arthritis Tolliver, Grady, DO, MPH 06/07/2019 M54.5 Low back pain Tolliver, Grady, DO, MPH 06/07/2019 M99.03 Segmental and [...] fatigue Tolliver, Grady, DO, MPH 06/07/2019 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 Tolliver, Grady [...] spine Tolliver, Grady, DO, MPH 05/09/2019 Z79.891 half-way (current) use of opiate analgesic Tolliver, Grady [...] site Tolliver, Grady, DO, MPH 04/09/2019 Z79.891 half-way (current) use of opiate analgesic Tolliver, Grady [...] region Tolliver, Grady, DO, MPH 03/09/2019 Z79.891 half-way (current) use of opiate analgesic Tolliver, Grady , DO, MPH 03/09/2019 R53.83 Other fatigue Tolliver, Grady, DO, MPH 02/07/2019 G89.29 Other chronic pain Tolliver, Grady, DO, MPH 02/07/2019 M15.0 Primary generalized (osteo)arthritis Tolliver, Grady, DO, MPH 02/07/2019 M54.16 Radiculopathy, lumbar region Tolliver, Grady, DO, MPH 02/07/2019 M79.18 Myalgia, other site Tolliver, Grady, DO, MPH 02/07/2019 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 Tolliver, Grady [...] site Tolliver, Grady, DO, MPH 01/24/2019 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 Tolliver, Grady , DO, MPH 01/08/2019 G89.29 Other chronic pain Tolliver, Grady, DO, MPH 01/08/2019 M15.0 Primary generalized (osteo)arthritis Tolliver, Grady, DO, MPH 01/08/2019 M54.2 Cervicalgia Tolliver, Grady, DO, MPH 01/08/2019 M99.01 Segmental and somatic dysfunction of Grady Tolliver DO, MPH cervical region 01/08/2019 M54.5 Low back pain Grady Tolliver DO MPH 01/08/2019 M54.6 Pain in thoracic spine Grady Tolliver DO MPH 01/08/2019 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 Symptoms and complaints discussed and reviewed today. Lumbar somatic dysfunctions noted warranting OMT. Continue current medical pain management and OMT. [id number]. OMT performed after evaluation. HVLA.M54.16 Radiculopathy, lumbar regionComments:Chronic. Symptoms and complaints discussed and reviewed today. Notable physical findings reviewed; pain levels and this patient's complaint of less functionality warrant intervention; patient is stableon current medical therapy. Injection therapy performed today - nerve block to right and left superior cluneal nerves. Informed consent given/refusal reviewed. See procedure sheet.M65.88 Other synovitis and tenosynovitis, other siteComments:Chronic. Symptoms and complaints discussed and reviewed today. Physical findings reviewed and warrant intervention. Continue current medical pain management. Injection therapy today - tendon sheath and tendon i/o. Informed consent given/refusal reviewed. See procedure sheet.M79.18 Myalgia, other siteComments:Injection therapy today - Trigger Point injections. Informed consent given/refusal reviewed. See procedure sheet. Symptoms and complaints discussed and reviewed today. Physical findings warrant interventional/injection therapy. Patient is stable and comfortable when current medical therapy isrendered.Z79.891 half-way (current) use of opiate analgesicNew Labs:Urine Drug Screen, Ordered: 07/09/19Comments:Urine drug screen sample taken. Rapid Point of [...] injection-B12 document for lot number and expiration date.)Z13.31 Encounter for screening for depressionComments:PHQ-9 Depression Screen administered today, results were Positive at this time. Followed by PCP. Will follow as pertains to their pain. Patient seems to be stable today. Reassurance and counseling. Patient seems to be stable today.AllComments: Continue current medical pain management; injection therapy, osteopathic [...] while maintaining satisfactory side effect profile andminimizing terminal clerk end-organ damage. Importance of regular nutrition throughout the day discussed.Activity as toleratedContinue with PCP Functional Status Description No Information Available Mental Status Description No Information Available Referrals Refer to Dr Reason for Referral Status Appt Date Grady Tolliver D.O. MPH Created [address] [place] [id number] [phone] Grady Tolliver D.O. MPH Created [address] [place] [id number] [phone]
[2019-07-17 10:52] LABS: ALT 27 U/L (7-52); AST 22 U/L (13-39); Albumin 3.8 g/dL (3.2-5.2); Albumin/Globulin Ratio 1.6 (1-3); Alkaline Phosphatase 57 U/L (34-104); Anion Gap 5 mmol/L (2-11); BUN/Creatinine Ratio 18.2 (8-20); Blood Urea Nitrogen 14 mg/dL (6-24); C Reactive Protein 1.55 mg/L (<8.01); CO2 Carbon Dioxide 26 mmol/L (22-32); Calcium 9.1 mg/dL (8.6-10.3); Chloride 108 mmol/L (101-111); EGFR African American 104.5 (>60); EGFR Non-African American 86.3 (>60); Globulin 2.4 g/dL (2-4); Glucose 98 mg/dL (70-100); Potassium 4.4 mmol/L (3.5-5.0); Sodium 139 mmol/L (135-145); Total Protein 6.2 g/dL (6.4-8.9)
[2019-07-17 10:56] LABS: HCG Pregnancy < 0.60 mIU/mL
[2019-07-17] MEDS ORDERED: Iohexol 300* (CONTRAST) 10 ML SDV IV ONE (12:06)
[2019-07-17 13:10] VITALS: BP 121/73
[2019-07-17 13:15] LABS: Urine Appearance Cloudy; Urine Bilirubin Negative (Negative); Urine Blood Negative (Negative); Urine Color Yellow; Urine Glucose Negative (Negative); Urine Ketones Negative (Negative); Urine Nitrite Negative (Negative); Urine Protein Negative (Negative); Urine Specific Gravity 1.012 (1.010-1.030); Urine Urobilinogen Negative (Negative)
== END 2019-07-17 13:08 | disposition home or self-care (01) ==
LOC: ED 09:58
DX: R10.31 Right lower quadrant pain (principal); F41.9 Anxiety disorder, unspecified; F32.9 Major depressive disorder, single episode, unspecified; Z87.891 Personal history of nicotine dependence; Z79.899 Other long term (current) drug therapy; N83.202 Unspecified ovarian cyst, left side
CPT/HCPCS: 36415; 74177; 76830; 80053; 81003; 83605; 83690; 84702; 85025; 86140; 96374; 96375; 99282; J1885; J2405; Q9967

== ENCOUNTER 2019-08-04 21:27 | Emergency (ER) | payer OTHER ==
[2019-08-04 21:43] VITALS: BP 120/74
--- NOTE | 2019-08-04 22:09 | UC ---
Elbow Pain - HPI Summary HPI Summary: Slipped and fell on the left elbow 4 days ago. Persistent aching. No bruising. Some tingling into the little finger. - History of Current Complaint Chief Complaint: UCUpperExtremity Stated Complaint: ELBOW INJURY Hx Obtained From: Patient Hx Last Menstrual Period: 06/14/20 ?: No Onset/Duration: Days - 4, Traumatic - slipped and fell Severity Initially: Moderate Severity Currently: Moderate Pain Intensity: 7 Location Of Pain: Is Discrete @ - left elbow Character: Dull, Aching, Burning Aggravating Factor(s): Movement Alleviating Factor(s): Rest Associated Signs And Symptoms: Positive: Numbness/Tingling - down into the 5th finger. Negative: Swelling, Redness, Bruising, Fever, Weakness - Allergies/Home Medications Allergies/Adverse Reactions: Allergies Allergy/AdvReac Type Severity Reaction Status Date / Time No Known Allergies Allergy Verified 08/04/19 21:44 PMH/Surg Hx/FS Hx/Imm Hx Previously Healthy: Yes - Surgical History Surgical History: None - Family History Known Family History: Positive: Cardiac Disease, Hypertension, Diabetes, Respiratory Disease - Social History Occupation: Employed Full-time Lives: With Family Alcohol Use: Occasionally Substance Use Type: Marijuana Substance Use Comment - Amount & Last Used: occasionally Smoking Status (MU): Former Smoker Type: Cigarettes Amount Used/How Often: 1/2 PPD Length of Time of Smoking/Using Tobacco: 15 years Have You Smoked in the Last Year: Yes - Immunization History Most Recent Influenza Vaccination: 2017 Review of Systems All Other Systems Reviewed And Are Negative: Yes Musculoskeletal: Positive: Arthralgia - left elbow Neurological: Positive: Paresthesia - into left hand Physical Exam Triage Information Reviewed: Yes Appearance: Well-Appearing, Pain Distress - mild, Obese Vital Signs: Initial Vital Signs Temp 98.6 F 08/04/19 21:37 Pulse 72 08/04/19 21:37 Resp 12 08/04/19 21:37 BP 120/74 08/04/19 21:37 Pulse Ox 98 08/04/19 21:37 Vital Signs Reviewed: Yes Eyes: Positive: Conjunctiva Clear Neck: Positive: Supple, Nontender Respiratory Exam: Normal Cardiovascular Exam: Normal Musculoskeletal: Positive: Strength Intact, ROM Intact, Other: - tenderness Neurological: Positive: Other: - parasthesia left ulnar nerve distribution Psychological Exam: Normal Skin Exam: Normal Diagnostics - Radiology No standard instances Radiology Interpretation Completed By: ED Physician Summary of Radiographic Findings: Negative Elbow Pain Course/Dx - Differential Dx/Diagnosis Differential Diagnosis/HQI/PQRI: Contusion, Fracture (Closed), Sprain, Strain, Tendonitis Provider Diagnosis: Contusion of left elbow, initial encounter Discharge ED - Sign-Out/Discharge Documenting (check all that apply): Patient Departure All imaging exams completed and their final reports reviewed: No - Discharge Plan Condition: Stable Disposition: HOME Prescriptions: Gabapentin CAP(*) [Neurontin 300 CAP(*)] 300 mg PO BEDTIME #14 cap Patient Education Materials: Contusion in Adults (ED) Referrals: Chasidy Singh MD [Primary Care Provider] - If Needed (if not improving in a week.) Additional Instructions: Nerve Contusion: A bruised nerve causes the nerve to be irritated and extra sensitive to all sensations. Ice can make it feel worse. Jose wraps frequently aren't tolerated either. It may take weeks to resolve. - Billing Disposition and Condition Condition: STABLE Disposition: Home
--- NOTE | 2019-08-05 08:11 | UC ---
- Progress Note Progress Note: Final read of left elbow x-ray by radiologist comes through with no fracture. Provider reported same date states the same therefore there is no discrepancy. Course/Dx - Diagnoses Provider Diagnoses: Contusion of left elbow, initial encounter Discharge ED - Sign-Out/Discharge Documenting (check all that apply): Patient Departure All imaging exams completed and their final reports reviewed: No - Discharge Plan Condition: Stable Disposition: HOME Prescriptions: Gabapentin CAP(*) [Neurontin 300 CAP(*)] 300 mg PO BEDTIME #14 cap Patient Education Materials: Contusion in Adults (ED) Referrals: Chasidy Singh MD [Primary Care Provider] - If Needed (if not improving in a week.) Additional Instructions: Nerve Contusion: A bruised nerve causes the nerve to be irritated and extra sensitive to all sensations. Ice can make it feel worse. Jose wraps frequently aren't tolerated either. It may take weeks to resolve. - Billing Disposition and Condition Condition: STABLE Disposition: Home
== END 2019-08-04 22:22 | disposition home or self-care (01) ==
LOC: UCEAST 21:27
DX: S50.02XA Contusion of left elbow, initial encounter (principal); Z87.891 Personal history of nicotine dependence; W01.0XXA Fall on same level from slipping, tripping and stumbling without subsequent striking against object, initial encounter; Y92.9 Unspecified place or not applicable
CPT/HCPCS: 99212; G0463